=== PATIENT | male | born 1955 | race Caucasian/White ===

== ENCOUNTER 2020-03-04 09:45 | Inpatient (IN) ==
[2020-03-04] MEDS ORDERED: ACETAMINOPHEN 325 MG TABLET PO ONE (10:05)
--- NOTE | 2020-03-04 10:13 | Emergency Department Note ---
Abdominal Pain HPI - General Chief Complaint: Abdominal Pain Stated Complaint: Elevated wbc, abscess and diverticulitis Time Seen by Provider: 03/04/20 09:48 Source: patient Mode of arrival: ambulatory Limitations: no limitations - History of Present Illness HPI Narrative: 64-year-old male patient was referred back to the emergency department via his primary care provider with a diagnosis of worsening diverticulitis with intra- abdominal abscess development. Patient was evaluated by a colleague here in the emergency department on 02/21 and during that visit he was diagnosed with diverticulitis and a suspicious kidney mass. During that visit he underwent an abdominal/pelvic CT scan with contrast that did show acute diverticulitis of the mid distal sigmoid colon. There was also noted 2.3 x 2.4 cm mass anterior to the upper half of the right kidney. He was started on both oral ciprofloxacin 500 mg twice daily metronidazole 500 mg 3 times daily. He was set up to follow up with his primary care provider who saw him several times. Most recently he was evaluated on 03/02 and during that visit he was doing a bit better pain raygoza. They repeated some basic blood work and the CT with contrast. His WBC was elevated 19.8 which is unchanged from his visit in the emergency department on 02/21. Repeat CT scan results showed marked worsening of the mid and distal sigmoid diverticulitis. There was mention of an abscess distal right perisigmoid fat increased 2 cm to 5cm communicating with a new 3 cm air- containing abscess anteriorly/superiorly. This then communicates with a new 2.8 cm abscess superiorly and laterally in the cecal region. Patient was notified this morning to come be reevaluated. Upon arrival, patient does mention that he woke up feeling "pretty okay". He continues to have some mild lower abdominal pain. He denies feeling feverish and he is afebrile in the emergency department with a temperature 97.5. Patient mentions last meal was 0 800 today consisting of toast and cereal. ROS: Denies sinus sinus congestion, runny nose, or cough. Denies shortness of breath. Denies retrosternal chest pain or palpitations. Denies nausea, vomiting, or constipation. Denies past history of diverticulitis. Admits to ongoing diarrhea. Denies hematuria, hematemesis, or hematochezia. Denies dysuria or frequency. Denies focal weakness. - Related Data Home Medications Medication Instructions Recorded Confirmed aspirin 81 mg tablet 81 mg PO QDAY 05/16/17 03/02/20 omega-3 fatty acids 1,000 mg 2,000 mg PO QDAY 11/17/19 03/02/20 capsule Previous Rx's Medication Instructions Recorded allopurinol 300 mg tablet 300 mg PO QDAY #90 tab 11/17/19 lisinopril 10 mg tablet 10 mg PO QDAY #90 tab 11/17/19 rosuvastatin 20 mg tablet 20 mg PO QDAY #90 tab 11/17/19 Ciprofloxacin [Cipro] 500 mg PO BID #20 tab 02/22/20 HYDROcodone/APAP 5/325MG [[place] 1 tab PO Q4HP PRN #8 tab 02/22/20 5-325Mg] Ondansetron [Zofran ODT] 4 mg SL Q4-6HP PRN #10 tab 02/22/20 metroNIDAZOLE [Flagyl] 500 mg PO TID #30 tab 02/22/20 tamsulosin 0.4 mg capsule 0.4 mg PO QHS #30 cap 03/02/20 Allergies Allergy/AdvReac Type Severity Reaction Status Date / Time Penicillins Allergy Severe Nausea Verified 03/04/20 09:45 atorvastatin [From Lipitor] AdvReac Severe Muscle Pain Verified 03/04/20 09:45 bee stings Allergy Unknown Unknown Uncoded 03/02/20 07:20 Review of Systems All systems ED: reviewed and negative except as stated. Abdominal Pain PMH - Past Medical History [facility] Narrative: Medical History (Last Reviewed 03/02/20 @ 08:00 by Ronald Austin DO) Otitis externa (Chronic) Right ear pain (Chronic) History of tobacco abuse (Chronic) Arthritis (Chronic) Gout (Chronic ~1996) Hypertension, essential (Chronic ~2002) Hyperlipidemia (Chronic ~2002) Past Surgical History (Last Reviewed 03/02/20 @ 08:00 by Ronald Austin DO) H/O arthroscopy of left knee (Chronic ~1985) H/O colonoscopy (Chronic 02/2017) History of open reduction and internal fixation (ORIF) procedure (Chronic ~1983) Family History (Last Reviewed 03/02/20 @ 08:00 by Ronald Austin DO) Mother Arthritis Hypertension, essential Father Hypertension, essential Brother Hypertension, essential - Social History Smoking status: Former smoker Physical Exam Limitations: no limitations General appearance: alert, other (Well-developed, well-nourished, 64-year-old male patient laying semirecumbent on the emergency room gurney in no acute distress.) Head: atraumatic, normocephalic Eye: Present: normal appearance, PERRL, EOMI. Absent: scleral icterus, conjunctival injection ENT: Present: normal oropharynx, mucous membranes moist Neck: Present: trachea midline. Absent: lymphadenopathy Chest: Present: symmetric chest wall rise Respiratory: Present: normal lung sounds bilaterally. Absent: respiratory distress, rales/crackles, wheezes, stridor, accessory muscle use, prolonged expiratory phase Cardiovascular: Present: regular rate, normal rhythm. Absent: systolic murmur, diastolic murmur Abdominal: Present: soft, tenderness, normal bowel sounds. Absent: distention, guarding, rebound, rigidity, organomegaly, mass Abdominal tenderness: Present: LLQ, moderate Extremities: Present: normal inspection, full ROM, normal capillary refill. Absent: pedal edema Back: Present: normal inspection, full ROM Neurological: Present: alert, oriented X3 Psychiatric: Present: normal affect, normal mood Skin: Present: warm, dry, normal color Course Course Narrative: Patient has a known worsening diverticulitis with abscess development from repeat CT scan done yesterday (03/03). No additional imaging is warranted this time. However, we are going to repeat some laboratory studies looking for worse myla. Patient is currently afebrile and comfortable. He is not requiring any considerable intervention. A review of his laboratory studies show the following: CBC WBC 17.7 (slight decrease from 03/02 at 19.8), all others within normal limits. CMP sodium 132, glucose 159, all others within normal limits. C-reactive protein 6.7. Lactic acid 1.6. After reviewing all this data I discussed the case with my collaborating physician (Dr. Serna). At this time is recommended that we start the patient on Ancef to help cover both gram-positive and gram-negative organisms. Patient was given Ancef 1 g IVP. Afterwards, I reached out to on-call general surgeon (Dr. Foster) and discussed the case with him. At this time Dr. Foster is requested that the patient be admitted to the surgical service under his care. He is wanted me to place so holding orders and then he will assume care afterward. He recommended starting the patient on both cefepime 2 g IV and Flagyl 500 mg IV every 8 hours. Knowing this, I discussed the admission with the patient who verbalized understanding. At this time holding orders are can be placed as mentioned. Dr. Foster is going to assume care and all further treatment decisions, modalities, and ultimate patient disposition will be carried out by Dr. Fsoter and the surgical service. Vital Signs Temperature 97.5 F 03/04/20 09:45 Pulse Rate 100 H 03/04/20 09:45 Respiratory Rate 20 03/04/20 09:45 Blood Pressure 124/86 03/04/20 09:45 Pulse Oximetry (%) 100 03/04/20 09:45 Temperature 97.5 F 03/04/20 14:32 Pulse Rate 73 03/04/20 14:32 Respiratory Rate 20 03/04/20 14:32 Blood Pressure 113/79 03/04/20 14:32 Pulse Oximetry (%) 97 03/04/20 14:32 Abdominal Pain - Lab Data Lab results reviewed: Yes I reviewed the patient's lab results. Result diagrams: 03/04/20 10:05 03/04/20 10:05 Lab Results 03/04/20 03/04/20 03/04/20 Range/Units 10:05 10:05 10:08 WBC 17.7 H (4.50-11.00) K/mcL RBC 4.94 (4.63-6.08) M/mcL Hgb 14.5 (13.7-17.5) g/dL Hct 42.2 (40.1-51.0) % MCV 85.4 (80.0-100.0) fL MCH 29.4 (26.0-34.0) pg MCHC 34.4 (31.0-36.0) g/dL RDW 11.8 (11.5-14.5) % Plt Count 436 (140-440) K/mcL MPV 8.3 (7.4-10.4) fL Total Counted 100 Seg Neutrophils % 93 H (38-78) % Band Neutrophils % Not Reportable Lymphocytes % 4 L (15-49) % Monocytes % (Manual) 2 (1-12) % Eosinophils % (Manual) 1 (0-7) % Platelet Estimate Normal (NORMAL) RBC Morphology Normal (NORMAL) VBG Lactic Acid 1.6 (0.5-2.0) mmol/L Sodium 132 L (133-145) mmol/L Potassium 3.6 (3.3-5.1) mmol/L Chloride 97 (96-108) mmol/L Carbon Dioxide 23 (22-30) mmol/L Anion Gap 12.0 (8-16) BUN 14 (8-23) mg/dl Creatinine 0.8 (0.7-1.2) mg/dl GFR Calculation 94 Glucose 159 H (70-105) mg/dL Calcium 9.0 (8.6-10.4) mg/dl Total Bilirubin 0.5 (0.0-1.0) mg/dL AST 14 (0-37) U/l ALT 9 (0-40) U/l Alkaline Phosphatase 63 (39-117) U/L C-Reactive Protein (0.0-0.8) mg/dl Total Protein 7.2 (5.9-8.4) gm/dL Albumin 3.6 (3.2-5.2) gm/dL Globulin 3.6 (2.2-3.7) gm/dL Albumin/Globulin Ratio 1.0 (1.0-2.3) 03/04/20 Range/Units 10:08 WBC (4.50-11.00) K/mcL RBC (4.63-6.08) M/mcL Hgb (13.7-17.5) g/dL Hct (40.1-51.0) % MCV (80.0-100.0) fL MCH (26.0-34.0) pg MCHC (31.0-36.0) g/dL RDW (11.5-14.5) % Plt Count (140-440) K/mcL MPV (7.4-10.4) fL Total Counted Seg Neutrophils % (38-78) % Band Neutrophils % Lymphocytes % (15-49) % Monocytes % (Manual) (1-12) % Eosinophils % (Manual) (0-7) % Platelet Estimate (NORMAL) RBC Morphology (NORMAL) VBG Lactic Acid (0.5-2.0) mmol/L Sodium (133-145) mmol/L Potassium (3.3-5.1) mmol/L Chloride (96-108) mmol/L Carbon Dioxide (22-30) mmol/L Anion Gap (8-16) BUN (8-23) mg/dl Creatinine (0.7-1.2) mg/dl GFR Calculation Glucose (70-105) mg/dL Calcium (8.6-10.4) mg/dl Total Bilirubin (0.0-1.0) mg/dL AST (0-37) U/l ALT (0-40) U/l Alkaline Phosphatase (39-117) U/L C-Reactive Protein 6.7 H (0.0-0.8) mg/dl Total Protein (5.9-8.4) gm/dL Albumin (3.2-5.2) gm/dL Globulin (2.2-3.7) gm/dL Albumin/Globulin Ratio (1.0-2.3) - Radiology Data Radiology results reviewed: Yes I reviewed the patient's radiology results. Ordering Physician: Ronald Austin D.O. Date of Service: 03/03/20 Procedure(s): CT abdomen pelvis w con Accession Number(s): [id number] CLINICAL INFORMATION: Diverticulitis. Left lower quadrant pain COMPARISON: I 17/02/2020 TECHNIQUE: Following enteric contrast, 80 cc of Isovue-370 were injected intravenously, and 60 seconds later, 0.625 mm helical slices were obtained from the mid heart through the subtrochanteric regions. Following reconstruction, 2.5 mm sagittal, coronal and axial reformatted images were processed and reviewed at bone, lung and soft tissue windows. Five minutes later, 0.625 mm helical slices were obtained from the mid heart through the kidneys and viewed at soft tissue windows.The exam was performed using radiation dose optimization techniques including, but not limited to, automated exposure control, adjustment of the mA and/or kV according to patient size and use of iterative reconstruction technique. FINDINGS: Lung bases show scattered scarring and/or atelectasis. No effusions. The visualized heart is normal in size scattered calcific plaque in the visualized coronary arteries. Abdominal images show multiple small stones layering dependently in the gallbladder. Gallbladder demonstrates normal wall thickness. The intrahepatic and common bile ducts are normal caliber and CBD 6 mm. The liver, both adrenal glands, spleen, pancreas and aorta, including aortic branches, are normal in size, configuration and attenuation without focal lesion. A 2.4 cm homogeneously enhancing mass arising from the anterior cortex mid right kidney is again seen. It is likely stage I renal cell carcinoma Pelvic images show moderate diverticulitis involving the mid and distal sigmoid colon as progressed with increasing wall thickening and inflammation in the perisigmoid fat. In addition, a collection of abscesses has increased considerably since the exam over one week prior. The largest is 5 cm in the distal right perisigmoid fat near the rectal junction. Previously, this was only 2 cm. It is communicates superiorly with a new 3 cm air-containing abscess which then communicates with a 2.8 cm abscess more superiorly and laterally in the pericecal region. Small amount of free fluid is appreciated.. Mild wall thickening of the adjacent posterior wall the urinary bladder is sympathetic. Bone windows show no osseous abnormality. IMPRESSION: 1. Marked worsening of mid and distal sigmoid diverticulitis. An abscess in the distal right perisigmoid fat has increased 2 cm to 5 cm. This abscess communicates with a new 3 cm air-containing abscess anteriorly superiorly which then communicates with a new 2.8 cm abscess superiorly and laterally in the pericecal region. Consider CT-guided percutaneous drainage of a large abscess component. 2. Cholelithiasis 3. 2.4 cm inhomogeneous enhancing solid mass anterior cortex mid right kidney suspicious for stage I renal cell carcinoma. Suggest CT-guided biopsy Interpreted and Authenticated by: Ronald Elise 03/03/20 Disposition Pt seen by [employer]/PA only: Yes Clinical Impression: Kidney mass Diverticulitis of intestine with abscess Qualifiers: Diverticulitis site: large intestine Diverticulitis bleeding: unspecified bleeding status Qualified Code(s): K57.20 - Diverticulitis of large intestine with perforation and abscess without bleeding Disposition: Xfer As Inpt ([facility]) Condition: Good Referrals: Ronald Austin DO [Primary Care Provider] -
[2020-03-04 10:39] LABS: Hematocrit 42.2 % (40.1-51.0); Hemoglobin 14.5 g/dL (13.7-17.5); Mean Cell Volume 85.4 fL (80.0-100.0); Mean Corpuscular HGB Conc 34.4 g/dL (31.0-36.0); Mean Platelet Volume 8.3 fL (7.4-10.4); Platelet Count 436 K/mcL (140-440); RBC 4.94 M/mcL (4.63-6.08); Red Cell Distribution Width 11.8 % (11.5-14.5); WBC 17.7 K/mcL (4.50-11.00)
[2020-03-04 10:58] LABS: ALT/SGPT 9 U/l (0-40); AST/SGOT 14 U/l (0-37); Albumin 3.6 gm/dL (3.2-5.2); Alkaline Phosphatase 63 U/L (39-117); Bilirubin,Total 0.5 mg/dL (0.0-1.0); Blood Urea Nitrogen 14 mg/dl (8-23); Carbon Dioxide 23 mmol/L (22-30); Chloride 97 mmol/L (96-108); Globulin 3.6 gm/dL (2.2-3.7); Glomerular Filtration Rate 94; Glucose 159 mg/dL (70-105)
[2020-03-04 10:59] LABS: Eosinophils % (Manual) 1 % (0-7); Lymphocytes % 4 % (15-49); Monocytes % (Manual) 2 % (1-12); Platelet Estimate NORMAL (NORMAL); RBC Morphology NORMAL (NORMAL); Segmented Neutrophils % 93 % (38-78)
[2020-03-04] MEDS ORDERED: ceFAZolin 1 GM VIAL IV ONE (11:10)
[2020-03-04] MEDS ORDERED: ACETAMINOPHEN 325 MG TABLET PO PRN (11:58)
[2020-03-04] MEDS ORDERED: HYDROmorphone 0.5 MG/0.5 ML SYRINGE IV PRN (11:58)
[2020-03-04] MEDS ORDERED: ONDANSETRON 4 MG/2 ML VIAL IV PRN (11:58)
--- NOTE | 2020-03-04 12:03 | Emergency Department Note ---
ED Note Addendum Note Addendum: I reviewed this case of Kerwin Mcginnis PA-C. I had previously saw this patient in the ER. Anyways Kerwin and I discussed the patient's management and work-up. I agree with his evaluation management and documentation. Patient will be admitted for diverticulitis with abscess. Incidentally noted renal mass will also require work-up
[2020-03-04] MEDS: metroNIDAZOLE 500 MG/100 ML BAG IV SCH ×2 (12:32→20:23)
--- NOTE | 2020-03-04 15:51 | General Surg History&Physical ---
History of Present Illness Patient information: Note initiated : 03/04/20 at 3:48 pm Service Date, if different from initiated Date: [] Patient: Derrick Summers a 64 y/o M admitted on 03/04/20 for Elevated wbc, abscess and diverticulitis. Chief Complaint: [] HPI: Mr. Summers is a 64 year old M history of acute diverticulitis since 21 February. He has been treated with 10 days of antibiotics which ended yesterday. He has had diarrhea and some urgency. He denies fever or chills. He has poor appetite with a 10 pound weight loss. He has not had similar difficulty. Follow-up CT performed on yesterday shows progression of the inflammation of the colon with 3 separate abscess pockets of air contained the abscess pockets. Patient is admitted and will have sigmoid colectomy tomorrow. He is counseled for the colectomy and is advised that he will have colostomy for 8-10 weeks before re- anastomosis. Review of Systems All systems PM: reviewed and no additional remarkable complaints except as stated (negative except as noted in HPI) Past History Past medical history: Hypertension right kidney mass suspicious for renal cell carcinoma Cholelithiasis Past surgical history: Arthroscopy left knee Open treatment and fixation left hand fracture Past family history: Multiple family members have hypertension Past social history: Retired Former smoker Daily alcohol drinker Denies drug use Medications and Allergies Home Medications Medication Instructions Recorded Confirmed Type aspirin 81 mg tablet 81 mg PO QDAY 05/16/17 03/02/20 History allopurinol 300 mg tablet 300 mg PO QDAY #90 tab 11/17/19 03/02/20 Rx lisinopril 10 mg tablet 10 mg PO QDAY #90 tab 11/17/19 03/02/20 Rx omega-3 fatty acids 1,000 mg 2,000 mg PO QDAY 11/17/19 03/04/20 History capsule rosuvastatin 20 mg tablet 20 mg PO QDAY #90 tab 11/17/19 03/04/20 Rx Ondansetron [Zofran ODT] 4 mg SL Q4-6HP PRN #10 tab 02/22/20 03/02/20 Rx tamsulosin 0.4 mg capsule 0.4 mg PO QHS #30 cap 03/02/20 03/04/20 Rx Allergies Allergy/AdvReac Type Severity Reaction Status Date / Time Penicillins Allergy Severe Nausea Verified 03/04/20 09:45 atorvastatin [From Lipitor] AdvReac Severe Muscle Pain Verified 03/04/20 09:45 bee stings Allergy Unknown Unknown Uncoded 03/02/20 07:20 Exam Temp Pulse Resp BP Pulse Ox 98.6 F 68 16 112/69 96 03/04/20 14:34 03/04/20 14:34 03/04/20 14:34 03/04/20 14:34 03/04/20 14:34 - General physical appearance well developed, well nourished, no distress - Eyes PERRL, normal ocular movement - ENT normal pinna, normal nares, normal mucosa, no hearing loss, no congestion, poor snf (multiple missing teeth and cavitations) - Head Head exam IM: Present: atraumatic, normocephalic - Neck no masses, no bruits, trachea midline, no lymphadenopathy, no venous distension - Cardiovascular Cardiovascular exam IM: Present: normal rate and rhythm - Respiratory normal expansion, normal respiratory effort, clear to percussion, clear to auscultation - Abdomen Abdomen: Present: soft, tender ( tenderness left lower quadrant suprapubic and right lower quadrant with guarding), bowel sounds, masses ( mass effect suprapubic area), guarding Hernia: Present: none - Genitourinary Present: normal penis with no external lesions - Integumentary Present: no rash, no growths, no abnormal pigmentation - Neurologic Present: normal coordination, normal sensation - Musculoskeletal Present: normal gait, normal posture - Psychiatric Present: oriented to time, oriented to person, oriented to place, speech is normal, memory intact Assessment and Plan (1) Diverticulitis of intestine with abscess Liquids until midnight Sigmoid resection with colostomy in a.m. Cefepime 2 g every 8 hours Metronidazole 500 mg IV every 6 hours Status: Acute Qualifiers: Diverticulitis site: large intestine Diverticulitis bleeding: unspecified bleeding status Qualified Code(s): K57.20 - Diverticulitis of large intestine with perforation and abscess without bleeding (2) Umbilical hernia Will repair at the time of the laparotomy Status: Acute Qualifiers: Obstruction and gangrene presence: without obstruction or gangrene Qualified Code(s): K42.9 - Umbilical hernia without obstruction or gangrene (3) Hypertension, essential Will supplement with IV antihypertensives as needed Status: Chronic (4) Kidney mass Delay renal biopsy scheduled for 08 March 2020 until patient recovers from this operative procedure Status: Acute
[2020-03-04] MEDS: CEFEPIME 2 GM VIAL IV SCH ×2 (16:10→20:23)
[2020-03-04] MEDS: 0.9 % SODIUM CHLORIDE 10 ML SYRINGE IV SCH ×2 (16:11→20:23)
[2020-03-04] MEDS: 0.9 % SODIUM CHLORIDE 1,000 ML IV SCH ×2 (16:11→20:22)
--- NOTE | 2020-03-04 17:42 | XRay Report ---
CLINICAL INFORMATION: Preop COMPARISON: None. TECHNIQUE: PA and Lateral views FINDINGS: The heart size, mediastinum and pulmonary vessels are unremarkable. The lungs are clear. There are no effusions. The bones and soft tissues are within normal limits. IMPRESSION: Normal chest. Interpreted and Authenticated by: Ronald Elise 03/04/20
[2020-03-04 18:17] LABS: INR 1.2 (0.9-1.1); Prothrombin Time 15.8 sec (11.9-14.5)
[2020-03-05] MEDS: 0.9 % SODIUM CHLORIDE 1,000 ML IV SCH ×5 (00:52→19:37)
[2020-03-05] MEDS: metroNIDAZOLE 500 MG/100 ML BAG IV SCH ×3 (04:28→22:18)
[2020-03-05] MEDS: CEFEPIME 2 GM VIAL IV SCH ×3 (04:28→22:17)
[2020-03-05] MEDS: 0.9 % SODIUM CHLORIDE 10 ML SYRINGE IV SCH ×3 (04:29→22:18)
[2020-03-05 04:39] LABS: Appearance,Urine CLEAR; Bilirubin,Urine NEG (NEG); Color,Urine YELLOW; Culture Indicated,Urine NO; Glucose,Urine (UA) NEGATIVE (NEG); Ketones,Urine 5/TR mg/dL (NEG); Leukocyte Esterase,Urine NEG /uL (NEG); Nitrate,Urine NEG (NEG); Protein,Urine NEG (NEG); Specific Gravity,Urine 1.018 (1.000-1.035); Urine Blood NEG mg/dL (<0.03); Urobilinogen,Urine NEG (NEG)
[2020-03-05] MEDS ORDERED: SCOPOLAMINE 1 PATCH PATCH TOPICAL PRN (07:00)
[2020-03-05] MEDS ORDERED: IPRATROPIUM/ALBUTEROL 3 ML AMPUL.NEB NEB PRN ×2 (07:00→09:47)
[2020-03-05] MEDS ORDERED: DEXAMETHASONE 10 MG/ML VIAL IV ONE (08:09)
[2020-03-05] MEDS ORDERED: SUCCINYLCHOLINE 20 MG/ML ML IV ONE (08:09)
[2020-03-05] MEDS ORDERED: PHENYLEPHRINE 10 MG/ML VIAL IV ONE (08:09)
[2020-03-05] MEDS ORDERED: SUGAMMADEX SODIUM 200 MG/2 ML VIAL IV ONE (08:09)
[2020-03-05] MEDS ORDERED: fentaNYL 250 MCG/5 ML VIAL IV ONE (08:09)
[2020-03-05] MEDS ORDERED: ROCURONIUM 10 MG/ML ML IV ONE (08:09)
[2020-03-05] MEDS ORDERED: LIDOCAINE HCL/PF 100 MG/5 ML SYRINGE IV ONE (08:09)
[2020-03-05] MEDS ORDERED: ePHEDrine 50 MG/ML AMPUL IV ONE (08:09)
[2020-03-05] MEDS ORDERED: PROPOFOL 200 MG/20 ML VIAL IV ONE (08:09)
[2020-03-05] MEDS ORDERED: KETAMINE 100 MG/ML ML IV ONE (08:09)
[2020-03-05] MEDS ORDERED: ROPIVACAINE HCL/PF 20 ML VIAL IJ ONE (08:09)
[2020-03-05] MEDS ORDERED: KETOROLAC 30 MG/ML VIAL IV ONE (08:09)
[2020-03-05] MEDS ORDERED: ONDANSETRON 4 MG/2 ML VIAL IV ONE (08:09)
[2020-03-05] MEDS ORDERED: MEPERIDINE 25 MG/ML SYRINGE IV PRN (09:47)
[2020-03-05] MEDS ORDERED: ONDANSETRON 4 MG/2 ML VIAL IV PRN (09:47)
[2020-03-05] MEDS ORDERED: HYDROmorphone 0.5 MG/0.5 ML SYRINGE IV PRN (09:47)
[2020-03-05] MEDS ORDERED: ACETAMINOPHEN 1,000 MG/100 ML BOTTLE IV ONE (09:47)
[2020-03-05] MEDS ORDERED: ATROPINE SULFATE 0.4 MG/ML VIAL IV PRN (09:47)
[2020-03-05] MEDS ORDERED: METHOCARBAMOL 1,000 MG/10 ML VIAL IV PRN (09:47)
[2020-03-05] MEDS ORDERED: diphenhydrAMINE 50 MG/ML VIAL IV PRN (09:47)
[2020-03-05] MEDS ORDERED: ePHEDrine 50 MG/ML AMPUL IV PRN (09:47)
[2020-03-05] MEDS ORDERED: NALOXONE HCL 0.4 MG/ML VIAL IV PRN (09:47)
[2020-03-05] MEDS ORDERED: METOPROLOL TARTRATE 5 MG/5 ML VIAL IV PRN (09:47)
[2020-03-05] MEDS ORDERED: PROMETHAZINE 25 MG/ML VIAL IV PRN (09:47)
[2020-03-05] MEDS ORDERED: LACTATED RINGERS 1,000 ML IV SCH (10:00)
--- NOTE | 2020-03-05 10:40 | Brief Operative Note ---
Date of procedure: 03/05/20 Pre-op diagnosis: ACUTE DIVERTICULITIS WITH PELVIC ABSCESS Post-op diagnosis: other (ACUTE DIVERTICULITIS WITH MULTIPLE PELVIC ABSCESSES) Procedure: SIGMOID COLECTOMY WITH COLOSTOMY AND DRAINAGE OF PELVIC ABSCESSES Grafts/Implants: No (AALIYAH DRAIN X2) Findings: MAJOR INFLAMMATION OF SIGMOID COLON WITH LARGE PHLEGMON OF COLON ,SMALL BOWEL ,AND BLADDER ABSCESS EXTENDED INTO DEEP PELVIS AND RLQ Complications: none Surgeon: Lashae Foster Estimated blood loss (cc): 100 Specimens Removed/Pathology: none sent (SIGMOID COLON AND CULTURE OF ABSCESS FLUID) Condition: stable Disposition: PACU
[2020-03-05] MEDS: fentaNYL 100 MCG/2 ML VIAL IV PRN ×3 (10:55→11:25)
[2020-03-05] MEDS ORDERED: ACETAMINOPHEN 325 MG TABLET PO PRN (12:37)
[2020-03-05] MEDS ORDERED: metroNIDAZOLE 500 MG/100 ML BAG IV SCH (14:00)
[2020-03-05] MEDS ORDERED: CEFEPIME 2 GM VIAL IV SCH (14:00)
[2020-03-05] MEDS: ONDANSETRON 4 MG/2 ML VIAL IV PRN (15:00)
[2020-03-05] MEDS: ACETAMINOPHEN 1,000 MG/100 ML BOTTLE IV SCH ×2 (18:46→23:34)
[2020-03-06] MEDS: HYDROmorphone 0.5 MG/0.5 ML SYRINGE IV PRN ×2 (03:23→07:23)
[2020-03-06] MEDS: 0.9 % SODIUM CHLORIDE 1,000 ML IV SCH ×5 (05:02→22:55)
[2020-03-06] MEDS: ACETAMINOPHEN 1,000 MG/100 ML BOTTLE IV SCH ×4 (05:03→23:56)
[2020-03-06] MEDS: 0.9 % SODIUM CHLORIDE 10 ML SYRINGE IV SCH ×3 (05:03→21:58)
[2020-03-06] MEDS: CEFEPIME 2 GM VIAL IV SCH ×3 (05:17→21:58)
[2020-03-06] MEDS: metroNIDAZOLE 500 MG/100 ML BAG IV SCH ×3 (06:01→21:58)
[2020-03-06 07:18] LABS: Basophils # (Auto) 0.04 K/mcL (0.00-0.30); Basophils % (Auto) 0.3 % (0.0-2.0); Eosinophils # (Auto) 0.01 K/mcL (0.00-0.70); Eosinophils % (Auto) 0.1 % (0.0-7.0); Granulocytes % (Auto) 81.7 % (38.0-78.0); Hematocrit 39.6 % (40.1-51.0); Lymphocytes # (Auto) 1.54 K/mcL (1.50-4.80); Lymphocytes % (Auto) 10.2 % (15.5-49.0); Mean Cell Volume 89.6 fL (80.0-100.0); Mean Corpuscular HGB Conc 32.8 g/dL (31.0-36.0); Mean Platelet Volume 8.1 fL (7.4-10.4); Monocytes # (Auto) 1.17 K/mcL (0.10-0.90); Monocytes % (Auto) 7.7 % (1.0-12.0); Platelet Count 466 K/mcL (140-440); RBC 4.42 M/mcL (4.63-6.08); Red Cell Distribution Width 11.7 % (11.5-14.5); WBC 15.1 K/mcL (4.50-11.00)
[2020-03-06 07:41] LABS: ALT/SGPT 9 U/l (0-40); AST/SGOT 11 U/l (0-37); Albumin 2.7 gm/dL (3.2-5.2); Albumin/Globulin Ratio 0.8 (1.0-2.3); Alkaline Phosphatase 46 U/L (39-117); Bilirubin,Direct < 0.2 mg/dL (0.0-0.3); Bilirubin,Total 0.3 mg/dL (0.0-1.0); Blood Urea Nitrogen 15 mg/dl (8-23); Calcium 8.4 mg/dl (8.6-10.4); Carbon Dioxide 25 mmol/L (22-30); Chloride 104 mmol/L (96-108); Globulin 3.3 gm/dL (2.2-3.7); Glomerular Filtration Rate 90; Glucose 116 mg/dL (70-105); Lactate Dehydrogenase 209 U/L (94-250); Phosphorous 3.2 mg/dL (2.7-4.5); Triglycerides 80 mg/dl (<150); Uric Acid 5.4 mg/dL (2.5-8.0)
--- NOTE | 2020-03-06 14:00 | General Surgery Progress Note ---
Subjective Patient reports: feels better, still having pain, pain is less, no flatus, no bowel movement, afebrile Narrative: Note initiated : 03/06/20 at 1:58 pm Service Date, if different from initiated Date: [] Patient: Derrick Summers 64 y/o M admitted on 03/04/20 for Elevated wbc, abscess and diverticulitis. Chief Complaint: [patient is clinically improved. The severe pain that he had prior to surgery has resolved though he does have incisional discomfort. He denies nausea. White blood count 15.1, hemoglobin 13, hematocrit 39.6. Stoma appears to be healthy] Objective Temp Pulse Resp BP Pulse Ox 98.5 F 82 18 150/85 95 03/06/20 11:26 03/06/20 11:26 03/06/20 11:26 03/06/20 11:26 03/06/20 11:26 - Additional Data Intake & Output - Last 24 hours: Intake & Output 03/04/20 03/05/20 03/06/20 03/07/20 05:59 05:59 05:59 05:59 Intake Total 1740 5575 200 Output Total 350 2815 Balance 1390 2760 200 Weight 222 lb 222 lb - General physical appearance well developed, well nourished, no distress - Eyes PERRL, normal ocular movement - ENT normal pinna, normal nares, normal mucosa, no hearing loss, no congestion - Neck no masses, no bruits, trachea midline, no lymphadenopathy, no venous distension - Respiratory normal expansion, normal respiratory effort, clear to auscultation - Cardiovascular Cardiovascular exam: Present: normal rate and rhythm, RRR, +S1, +S2. Absent: JVD, tachycardia - Abdomen tender, bowel sounds (present), surgical scars (none), masses (none) - Integumentary no rash, no growths, no abnormal pigmentation - Neurologic normal coordination, normal sensation - Musculoskeletal normal gait, normal posture - Psychiatric oriented to time, oriented to person, oriented to place, speech is normal, memory intact - Labs 03/06/20 05:53 03/06/20 05:53 Diabetes panel 03/06/20 Range/Units 05:53 Sodium 138 (133-145) mmol/L Potassium 3.7 (3.3-5.1) mmol/L Chloride 104 (96-108) mmol/L Carbon Dioxide 25 (22-30) mmol/L BUN 15 (8-23) mg/dl Creatinine 0.9 (0.7-1.2) mg/dl Glucose 116 H (70-105) mg/dL Calcium 8.4 L (8.6-10.4) mg/dl AST 11 (0-37) U/l ALT 9 (0-40) U/l Alkaline Phosphatase 46 (39-117) U/L Total Protein 6.0 (5.9-8.4) gm/dL Albumin 2.7 L (3.2-5.2) gm/dL Triglycerides 80 (<150) mg/dl Calcium panel 03/06/20 Range/Units 05:53 Calcium 8.4 L (8.6-10.4) mg/dl Phosphorus 3.2 (2.7-4.5) mg/dL Albumin 2.7 L (3.2-5.2) gm/dL Pituitary panel 03/06/20 Range/Units 05:53 Sodium 138 (133-145) mmol/L Potassium 3.7 (3.3-5.1) mmol/L Chloride 104 (96-108) mmol/L Carbon Dioxide 25 (22-30) mmol/L BUN 15 (8-23) mg/dl Creatinine 0.9 (0.7-1.2) mg/dl Glucose 116 H (70-105) mg/dL Calcium 8.4 L (8.6-10.4) mg/dl Adrenal panel 03/06/20 Range/Units 05:53 Sodium 138 (133-145) mmol/L Potassium 3.7 (3.3-5.1) mmol/L Chloride 104 (96-108) mmol/L Carbon Dioxide 25 (22-30) mmol/L BUN 15 (8-23) mg/dl Creatinine 0.9 (0.7-1.2) mg/dl Glucose 116 H (70-105) mg/dL Calcium 8.4 L (8.6-10.4) mg/dl Total Bilirubin 0.3 (0.0-1.0) mg/dL AST 11 (0-37) U/l ALT 9 (0-40) U/l Alkaline Phosphatase 46 (39-117) U/L Total Protein 6.0 (5.9-8.4) gm/dL Albumin 2.7 L (3.2-5.2) gm/dL Assessment and Plan (1) Diverticulitis of intestine with abscess Status: Acute Assessment and plan: Patient is clinically improved status post sigmoid colectomy with colostomy Current Visit: Yes (2) Umbilical hernia Status: Acute Current Visit: No (3) Hypertension, essential Status: Chronic Current Visit: No (4) Kidney mass Status: Acute Current Visit: Yes - Time Spent With Patient Total time spent is greater than 50% in coordination of care (as documented) at patient's floor/unit and/or counseling patient:
[2020-03-06] MEDS: ONDANSETRON 4 MG/2 ML VIAL IV PRN (17:20)
[2020-03-06] MEDS: METOCLOPRAMIDE 10 MG/2 ML VIAL IV SCH ×2 (17:20→23:55)
[2020-03-07] MEDS: 0.9 % SODIUM CHLORIDE 1,000 ML IV SCH ×2 (03:11→12:26)
[2020-03-07] MEDS: metroNIDAZOLE 500 MG/100 ML BAG IV SCH ×3 (04:51→22:39)
[2020-03-07] MEDS: HYDROmorphone 0.5 MG/0.5 ML SYRINGE IV PRN ×2 (05:58→20:11)
[2020-03-07] MEDS: ACETAMINOPHEN 1,000 MG/100 ML BOTTLE IV SCH ×4 (05:58→23:58)
[2020-03-07] MEDS: METOCLOPRAMIDE 10 MG/2 ML VIAL IV SCH ×4 (05:59→23:58)
[2020-03-07] MEDS: CEFEPIME 2 GM VIAL IV SCH ×3 (05:59→22:39)
[2020-03-07 06:31] LABS: Basophils # (Auto) 0.04 K/mcL (0.00-0.30); Basophils % (Auto) 0.3 % (0.0-2.0); Eosinophils # (Auto) 0.04 K/mcL (0.00-0.70); Eosinophils % (Auto) 0.3 % (0.0-7.0); Granulocytes % (Auto) 79.7 % (38.0-78.0); Hematocrit 36.2 % (40.1-51.0); Lymphocytes # (Auto) 1.56 K/mcL (1.50-4.80); Lymphocytes % (Auto) 11.9 % (15.5-49.0); Mean Cell Volume 89.2 fL (80.0-100.0); Mean Corpuscular HGB Conc 33.1 g/dL (31.0-36.0); Mean Platelet Volume 8.1 fL (7.4-10.4); Monocytes # (Auto) 1.02 K/mcL (0.10-0.90); Monocytes % (Auto) 7.8 % (1.0-12.0); Platelet Count 478 K/mcL (140-440); RBC 4.06 M/mcL (4.63-6.08); Red Cell Distribution Width 11.9 % (11.5-14.5); WBC 13.1 K/mcL (4.50-11.00)
[2020-03-07] MEDS: 0.9 % SODIUM CHLORIDE 10 ML SYRINGE IV SCH ×3 (06:34→22:39)
[2020-03-07 06:48] LABS: ALT/SGPT 7 U/l (0-40); AST/SGOT 11 U/l (0-37); Albumin 2.9 gm/dL (3.2-5.2); Alkaline Phosphatase 42 U/L (39-117); Bilirubin,Direct < 0.2 mg/dL (0.0-0.3); Bilirubin,Total 0.3 mg/dL (0.0-1.0); Blood Urea Nitrogen 16 mg/dl (8-23); Calcium 8.3 mg/dl (8.6-10.4); Carbon Dioxide 27 mmol/L (22-30); Chloride 103 mmol/L (96-108); Globulin 2.9 gm/dL (2.2-3.7); Glomerular Filtration Rate 100; Glucose 103 mg/dL (70-105); Lactate Dehydrogenase 194 U/L (94-250); Phosphorous 2.2 mg/dL (2.7-4.5); Triglycerides 94 mg/dl (<150); Uric Acid 5.2 mg/dL (2.5-8.0)
--- NOTE | 2020-03-07 12:48 | Surgical Pathology Report ---
HISTOLOGY SPECIMEN MICROSCOPIC DIAGNOSIS COLON, SIGMOID, SEGMENTAL RESECTION: -- ACUTE DIVERTICULITIS WITH MARKED ACUTE SEROSITIS AND SEROSAL ADHESIONS. -- MARGINS VIABLE. -- NINE MESENTERIC LYMPH NODES WITH REACTIVE LYMPHOID HYPERPLASIA. (DMT:sln) PROCEDURAL IMPRESSION Diverticulitis. GROSS DESCRIPTION The specimen is received in formalin as sigmoid colon and consists of a 24.5 cm long, up to 3.2 cn diameter C-shaped portion of colon with attached hyperemic adipose tissue, hemorrhage and serosal adhesions. Six additional lobular portions of adipose tissue are present within the container that also have patchy hyperemia and an aggregate measurement of 8.0 x 6.5 x 2.5 cm. Each end of the colon is stapled, staple lines measure up to 4.0 and 4.5 cm. The most prominent area of hemorrhage spans up to 9.0 x 8.5 cm. The central region of the attached adipose tissue is tightly adhesed. Opening of the colon reveals unprepped bowel with abundant brown fecal material. Numerous diverticula are identified. The specimen is fixed overnight prior to additional sectioning. After overnight fixation, the specimen is re-examined. No mucosal mass lesions or polyps are seen. Sectioning confirms numerous diverticula. A few soft pink-barrett lymph nodes measuring up to 0.5 cm are present within the attached fat. The surgical margins are submitted in A1; account development representative cross sections of colon submitted in [id number]; account development representative lymph nodes submitted in A4 (nine candidate lymph nodes). (ACP:[email or web address]) Electronically Signed by: John Boyd M.D.
--- NOTE | 2020-03-07 14:43 | General Surgery Progress Note ---
Subjective Patient reports: feels better, pain is less, no flatus, no bowel movement, afebrile Narrative: Note initiated : 03/07/20 at 2:41 pm Service Date, if different from initiated Date: [] Patient: Derrick Summers 64 y/o M admitted on 03/04/20 for Elevated wbc, abscess and diverticulitis. Chief Complaint: [patient is stable. He has not had any flatus so far. His stoma still looks good. Pain is adequately controlled. White blood count 13.1, hemoglobin 12, hematocrit 36.2, potassium 3.2, phosphorus 2.2] Objective Temp Pulse Resp BP Pulse Ox 98.1 F 92 H 18 148/84 93 03/07/20 12:00 03/07/20 12:00 03/07/20 12:00 03/07/20 12:00 03/07/20 12:00 - Additional Data Intake & Output - Last 24 hours: Intake & Output 03/05/20 03/06/20 03/07/20 03/08/20 05:59 05:59 05:59 05:59 Intake Total 1740 5575 2800 1200 Output Total 350 2815 2895 Balance 1390 2760 -95 1200 Weight 222 lb 222 lb 225 lb 9.6 oz 225 lb 9.6 oz - General physical appearance well developed, well nourished, no distress - Eyes PERRL, normal ocular movement - ENT normal pinna, normal nares, normal mucosa, no hearing loss, no congestion - Neck no masses, no bruits, trachea midline, no lymphadenopathy, no venous distension - Respiratory normal expansion, normal respiratory effort, clear to auscultation - Cardiovascular Cardiovascular exam: Present: normal rate and rhythm, RRR, +S1, +S2. Absent: JVD, tachycardia - Abdomen tender (mild incisional tenderness), bowel sounds ( good active bowel sounds), surgical scars (none), wound ( stoma in left lower quadrant looks good), masses (none), distended ( mild distention) - Integumentary no rash, no growths, no abnormal pigmentation - Neurologic normal coordination, normal sensation - Musculoskeletal normal gait, normal posture - Psychiatric oriented to time, oriented to person, oriented to place, speech is normal, memory intact - Labs 03/07/20 05:25 03/07/20 05:25 Diabetes panel 03/07/20 Range/Units 05:25 Sodium 141 (133-145) mmol/L Potassium 3.3 (3.3-5.1) mmol/L Chloride 103 (96-108) mmol/L Carbon Dioxide 27 (22-30) mmol/L BUN 16 (8-23) mg/dl Creatinine 0.7 (0.7-1.2) mg/dl Glucose 103 (70-105) mg/dL Calcium 8.3 L (8.6-10.4) mg/dl AST 11 (0-37) U/l ALT 7 (0-40) U/l Alkaline Phosphatase 42 (39-117) U/L Total Protein 5.8 L (5.9-8.4) gm/dL Albumin 2.9 L (3.2-5.2) gm/dL Triglycerides 94 (<150) mg/dl Calcium panel 03/07/20 Range/Units 05:25 Calcium 8.3 L (8.6-10.4) mg/dl Phosphorus 2.2 L (2.7-4.5) mg/dL Albumin 2.9 L (3.2-5.2) gm/dL Pituitary panel 03/07/20 Range/Units 05:25 Sodium 141 (133-145) mmol/L Potassium 3.3 (3.3-5.1) mmol/L Chloride 103 (96-108) mmol/L Carbon Dioxide 27 (22-30) mmol/L BUN 16 (8-23) mg/dl Creatinine 0.7 (0.7-1.2) mg/dl Glucose 103 (70-105) mg/dL Calcium 8.3 L (8.6-10.4) mg/dl Adrenal panel 03/07/20 Range/Units 05:25 Sodium 141 (133-145) mmol/L Potassium 3.3 (3.3-5.1) mmol/L Chloride 103 (96-108) mmol/L Carbon Dioxide 27 (22-30) mmol/L BUN 16 (8-23) mg/dl Creatinine 0.7 (0.7-1.2) mg/dl Glucose 103 (70-105) mg/dL Calcium 8.3 L (8.6-10.4) mg/dl Total Bilirubin 0.3 (0.0-1.0) mg/dL AST 11 (0-37) U/l ALT 7 (0-40) U/l Alkaline Phosphatase 42 (39-117) U/L Total Protein 5.8 L (5.9-8.4) gm/dL Albumin 2.9 L (3.2-5.2) gm/dL Assessment and Plan (1) Diverticulitis of intestine with abscess Status: Acute Assessment and plan: Patient is clinically improved status post sigmoid colectomy with colostomy Current Visit: Yes (2) Umbilical hernia Status: Acute Current Visit: No (3) Hypertension, essential Status: Chronic Current Visit: No (4) Kidney mass Status: Acute Current Visit: Yes - Time Spent With Patient Total time spent is greater than 50% in coordination of care (as documented) at patient's floor/unit and/or counseling patient:
[2020-03-07] MEDS: hydrALAZINE 20 MG/ML VIAL IV PRN (18:11)
[2020-03-07] MEDS: PANTOPRAZOLE 40 MG VIAL IV SCH (18:11)
[2020-03-07] MEDS: TAMSULOSIN 0.4 MG CAPSULE PO SCH (20:11)
[2020-03-08] MEDS: 0.9 % SODIUM CHLORIDE 1,000 ML IV SCH ×4 (00:55→23:38)
[2020-03-08] MEDS: hydrALAZINE 20 MG/ML VIAL IV PRN ×2 (03:36→16:00)
[2020-03-08] MEDS: ACETAMINOPHEN 1,000 MG/100 ML BOTTLE IV SCH ×5 (05:45→23:29)
[2020-03-08] MEDS: 0.9 % SODIUM CHLORIDE 10 ML SYRINGE IV SCH ×3 (05:46→21:29)
[2020-03-08] MEDS: metroNIDAZOLE 500 MG/100 ML BAG IV SCH ×3 (05:46→21:35)
[2020-03-08] MEDS: METOCLOPRAMIDE 10 MG/2 ML VIAL IV SCH ×4 (06:02→23:29)
[2020-03-08] MEDS: CEFEPIME 2 GM VIAL IV SCH ×3 (06:03→21:28)
[2020-03-08 06:54] LABS: Bilirubin,Direct < 0.2 mg/dL (0.0-0.3); Chloride 100 mmol/L (96-108)
[2020-03-08 06:56] LABS: ALT/SGPT 8 U/l (0-40); AST/SGOT 13 U/l (0-37); Albumin 2.8 gm/dL (3.2-5.2); Albumin/Globulin Ratio 0.9 (1.0-2.3); Alkaline Phosphatase 41 U/L (39-117); Bilirubin,Total 0.4 mg/dL (0.0-1.0); Blood Urea Nitrogen 14 mg/dl (8-23); Calcium 8.4 mg/dl (8.6-10.4); Carbon Dioxide 24 mmol/L (22-30); Glomerular Filtration Rate 106; Glucose 95 mg/dL (70-105); Lactate Dehydrogenase 202 U/L (94-250); Phosphorous 2.1 mg/dL (2.7-4.5); Triglycerides 106 mg/dl (<150); Uric Acid 5.3 mg/dL (2.5-8.0)
[2020-03-08] MEDS: HYDROmorphone 0.5 MG/0.5 ML SYRINGE IV PRN ×2 (08:10→17:01)
[2020-03-08] MEDS: PANTOPRAZOLE 40 MG VIAL IV SCH ×2 (08:10→17:03)
[2020-03-08 09:26] LABS: Basophils # (Auto) 0.08 K/mcL (0.00-0.30); Basophils % (Auto) 0.8 % (0.0-2.0); Eosinophils # (Auto) 0.12 K/mcL (0.00-0.70); Eosinophils % (Auto) 1.2 % (0.0-7.0); Granulocytes % (Auto) 75.4 % (38.0-78.0); Hematocrit 34.2 % (40.1-51.0); Hemoglobin 11.5 g/dL (13.7-17.5); Lymphocytes # (Auto) 1.53 K/mcL (1.50-4.80); Lymphocytes % (Auto) 14.8 % (15.5-49.0); Mean Cell Volume 89.3 fL (80.0-100.0); Mean Corpuscular HGB Conc 33.6 g/dL (31.0-36.0); Mean Platelet Volume 8.4 fL (7.4-10.4); Monocytes # (Auto) 0.81 K/mcL (0.10-0.90); Monocytes % (Auto) 7.8 % (1.0-12.0); Platelet Count 472 K/mcL (140-440); RBC 3.83 M/mcL (4.63-6.08); Red Cell Distribution Width 11.9 % (11.5-14.5); WBC 10.3 K/mcL (4.50-11.00)
[2020-03-08] MEDS ORDERED: LORazepam 1 MG TABLET PO PRN (13:29)
--- NOTE | 2020-03-08 14:19 | General Surgery Progress Note ---
Subjective Patient reports: feels better, still having pain, pain is less, voiding w/o difficulty, flatus, bowel movement, diarrhea, afebrile Narrative: Note initiated : 03/08/20 at 2:17 pm Service Date, if different from initiated Date: [] Patient: Derrick Summers 64 y/o M admitted on 03/04/20 for Elevated wbc, ab scess and diverticulitis. Chief Complaint: [patient was stable. He has had some flatus and small amount of bowel movement per stoma. He still has some abdominal distention. White blood count 10.3, hemoglobin 11.5, hematocrit 34.2, potassium 3.4, BUN 14, creatinine 0.6, phosphorus 2.1.] Objective Temp Pulse Resp BP Pulse Ox 97.4 F 94 H 18 153/86 93 03/08/20 12:00 03/08/20 12:00 03/08/20 12:00 03/08/20 12:00 03/08/20 12:00 - Additional Data Intake & Output - Last 24 hours: Intake & Output 03/06/20 03/07/20 03/08/20 03/09/20 05:59 05:59 05:59 05:59 Intake Total 5575 2800 2710 1300 Output Total 2815 2895 2803 550 Balance 2760 -95 -93 750 Weight 222 lb 225 lb 9.6 oz 224 lb 8 oz - General physical appearance well developed, well nourished, no distress - Eyes PERRL, normal ocular movement - ENT normal pinna, normal nares, normal mucosa, no hearing loss, no congestion - Neck no masses, no bruits, trachea midline, no lymphadenopathy, no venous distension - Respiratory normal expansion, normal respiratory effort, clear to auscultation - Cardiovascular Cardiovascular exam: Present: normal rate and rhythm, RRR, +S1, +S2. Absent: JVD, tachycardia - Abdomen tender (moderate tenderness especially along incision), bowel sounds ( good active bowel sounds), surgical scars (none), wound (. Left lower quadrant is functioning adequately), masses (none) - Integumentary no rash, no growths, no abnormal pigmentation - Neurologic normal coordination, normal sensation - Musculoskeletal normal gait, normal posture - Psychiatric oriented to time, oriented to person, oriented to place, speech is normal, memory intact - Labs 03/08/20 05:25 03/08/20 05:25 Diabetes panel 03/08/20 Range/Units 05:25 Sodium 139 (133-145) mmol/L Potassium 3.4 (3.3-5.1) mmol/L Chloride 100 (96-108) mmol/L Carbon Dioxide 24 (22-30) mmol/L BUN 14 (8-23) mg/dl Creatinine 0.6 L (0.7-1.2) mg/dl Glucose 95 (70-105) mg/dL Calcium 8.4 L (8.6-10.4) mg/dl AST 13 (0-37) U/l ALT 8 (0-40) U/l Alkaline Phosphatase 41 (39-117) U/L Total Protein 5.8 L (5.9-8.4) gm/dL Albumin 2.8 L (3.2-5.2) gm/dL Triglycerides 106 (<150) mg/dl Calcium panel 03/08/20 Range/Units 05:25 Calcium 8.4 L (8.6-10.4) mg/dl Phosphorus 2.1 L (2.7-4.5) mg/dL Albumin 2.8 L (3.2-5.2) gm/dL Pituitary panel 03/08/20 Range/Units 05:25 Sodium 139 (133-145) mmol/L Potassium 3.4 (3.3-5.1) mmol/L Chloride 100 (96-108) mmol/L Carbon Dioxide 24 (22-30) mmol/L BUN 14 (8-23) mg/dl Creatinine 0.6 L (0.7-1.2) mg/dl Glucose 95 (70-105) mg/dL Calcium 8.4 L (8.6-10.4) mg/dl Adrenal panel 03/08/20 Range/Units 05:25 Sodium 139 (133-145) mmol/L Potassium 3.4 (3.3-5.1) mmol/L Chloride 100 (96-108) mmol/L Carbon Dioxide 24 (22-30) mmol/L BUN 14 (8-23) mg/dl Creatinine 0.6 L (0.7-1.2) mg/dl Glucose 95 (70-105) mg/dL Calcium 8.4 L (8.6-10.4) mg/dl Total Bilirubin 0.4 (0.0-1.0) mg/dL AST 13 (0-37) U/l ALT 8 (0-40) U/l Alkaline Phosphatase 41 (39-117) U/L Total Protein 5.8 L (5.9-8.4) gm/dL Albumin 2.8 L (3.2-5.2) gm/dL Assessment and Plan (1) Diverticulitis of intestine with abscess Status: Acute Assessment and plan: Patient is clinically improved status post sigmoid colectomy with colostomy Discontinue nasogastric tube Clear liquid diet Ativan 1 mg daily at bedtime when necessary Current Visit: Yes (2) Umbilical hernia Status: Acute Current Visit: No (3) Hypertension, essential Status: Chronic Current Visit: No (4) Kidney mass Status: Acute Current Visit: Yes - Time Spent With Patient Total time spent is greater than 50% in coordination of care (as documented) at patient's floor/unit and/or counseling patient:
[2020-03-08] MEDS ORDERED: POTASSIUM PHOSPHATE 40 MEQ in DEXTROSE 5% IN WATER 500 ML IV ONE (14:21)
[2020-03-08] MEDS: TAMSULOSIN 0.4 MG CAPSULE PO SCH (20:48)
[2020-03-09] MEDS: METOCLOPRAMIDE 10 MG/2 ML VIAL IV SCH ×4 (05:33→23:39)
[2020-03-09] MEDS: CEFEPIME 2 GM VIAL IV SCH ×3 (05:34→21:25)
[2020-03-09] MEDS: 0.9 % SODIUM CHLORIDE 1,000 ML IV SCH ×4 (05:34→22:50)
[2020-03-09] MEDS: ACETAMINOPHEN 1,000 MG/100 ML BOTTLE IV SCH ×4 (05:48→23:39)
[2020-03-09] MEDS: 0.9 % SODIUM CHLORIDE 10 ML SYRINGE IV SCH ×3 (05:49→21:26)
[2020-03-09] MEDS: metroNIDAZOLE 500 MG/100 ML BAG IV SCH ×3 (06:23→21:25)
[2020-03-09] MEDS: PANTOPRAZOLE 40 MG VIAL IV SCH ×2 (07:08→17:14)
--- NOTE | 2020-03-09 11:52 | Operative Note ---
DATE OF OPERATION: 03/05/2020 PREOPERATIVE DIAGNOSES: Acute diverticulitis with pelvic abscess. POSTOPERATIVE DIAGNOSES: Acute diverticulitis with multiple pelvic abscesses. PROCEDURE: Sigmoid colectomy with colostomy and drainage of multiple pelvic abscesses. SURGEON: Lashae Foster M.D. FINDINGS: Major inflammation of the sigmoid colon with a large phlegmon of the colon, small bowel, and bladder with abscesses which extended into the deep pelvis and right lower quadrant. DESCRIPTION OF PROCEDURE: Under general anesthesia, the patient's abdomen was prepped and draped in a sterile field. Lower midline incision was made. Upon entering the abdomen, a small amount of turbid fluid was encountered. This was irrigated and suctioned. The omentum was stuck in the pelvis and was bluntly dissected free from the area of the bladder and the sigmoid colon. This unroofed a large phlegmon which involved the sigmoid colon and multiple loops of small bowel and bladder. Using blunt dissection, I initially the sigmoid colon and small bowel from the bladder. I carried this dissection into the deep pelvis and two abscesses were encountered. Cultures were taken and the area was copiously irrigated with saline. I dissected along the anterior surface of the rectum down into the deep pelvis. Next, I dissected the right side of the rectosigmoid and another abscess cavity was encountered. It was bluntly fractionated with finger dissection and copiously irrigated. This abscess cavity was densely adherent to multiple loops of small bowel which were free using blunt dissection. Once the bowel was dissected free, it was inspected, and it appeared to be secondarily inflamed but otherwise was unremarkable. Next, the sigmoid colon in the left lower quadrant was dissected using primarily finger dissection. There was a large inflamed mass of the mid-sigmoid which was dissected free. I then divided the colon proximal and distal to this large phlegmon, and this was carried out with a Contour stapler. The mesentery was divided with Voyant cautery device. The specimen was passed off. Copious irrigation was carried out once more. The sigmoid was then mobilized along the lateral line of Toldt up to the mid-descending colon. This allowed enough length for the colon to be brought safely through the anterior wall without tension. The colon had very large tenia coli which were dissected and then excised to reduce the bulk of bowel that had to be brought through the opening. The opening for the stoma was made in the anterior abdominal wall skilled nursing between umbilicus and anterior superior iliac spine. The skin was excised with a scalpel, and the subcutaneous tissue and muscle was scored using electrocautery. The defect was stretched so that the colon could be brought through comfortably. Once this was done, the wall of the colon was sutured to the peritoneum using six sutures of 3-0 silk. Irrigation was carried out in the pelvis once more. Two AALIYAH drains were placed and brought out through separate incisions in the right lower quadrant. These drains were positioned in the left gutter and in the deep pelvis. Sponge, needle, instrument, and blade counts were verified as correct. Peritoneum and fascia were closed with running #1 Prolene. Subcutaneous tissue was irrigated and closed with 2-0 Monocryl. Skin was closed with claudia. The incision was covered and the stoma was matured. The wall of the colon was sutured to the anterior rectus fascia using interrupted 3-0 silk. The end of the bowel was sutured to the dermis circumferentially using running 3-0 Vicryl. A stoma appliance was placed. Tegaderm was placed over the incision and drain sponges were placed around drains. The patient tolerated the procedure well. He was awakened uneventfully, extubated, and transferred to the postanesthetic care unit in satisfactory condition. LCS:marlon Job ID: [id number] Doc ID: [id number] Lashae Foster M.D.
--- NOTE | 2020-03-09 17:16 | General Surgery Progress Note ---
Subjective Patient reports: no new complaints, feels better, tolerating a regular diet, flatus, bowel movement, afebrile Narrative: Note initiated : 03/09/20 at 5:14 pm Service Date, if different from initiated Date: [] Patient: Derrick Summers 64 y/o M admitted on 03/04/20 for Elevated wbc, abscess and diverticulitis. Chief Complaint: [patient continues to improve. he is tolerating soft diet without difficulty. he denies nausea. AALIYAH drainage is still mildly serosanguineous. His stoma is functioning well and he received instructions from the enterostomal therapist.] Objective Temp Pulse Resp BP Pulse Ox 98.5 F 84 18 146/79 94 03/09/20 15:43 03/09/20 15:43 03/09/20 15:43 03/09/20 15:43 03/09/20 15:43 - Additional Data Intake & Output - Last 24 hours: Intake & Output 03/07/20 03/08/20 03/09/20 03/10/20 05:59 05:59 05:59 05:59 Intake Total 2800 2710 3750 1340 Output Total 2895 2803 2090 1441 Balance -95 -93 1660 -101 Weight 225 lb 9.6 oz 224 lb 8 oz 226 lb 8 oz 226 lb 8 oz - General physical appearance well developed, well nourished, no distress - Eyes PERRL, normal ocular movement - ENT normal pinna, normal nares, normal mucosa, no hearing loss, no congestion - Neck no masses, no bruits, trachea midline, no lymphadenopathy, no venous distension - Respiratory normal expansion, normal respiratory effort, clear to auscultation - Cardiovascular Cardiovascular exam: Present: normal rate and rhythm, RRR, +S1, +S2. Absent: JVD, tachycardia - Abdomen non tender, bowel sounds (present), surgical scars (none), wound (stoma is healthy and is functioning normally), masses (none) - Integumentary no rash, no growths, no abnormal pigmentation - Neurologic normal coordination, normal sensation - Musculoskeletal normal gait, normal posture - Psychiatric oriented to time, oriented to person, oriented to place, speech is normal, memory intact - Labs 03/08/20 05:25 03/08/20 05:25 Assessment and Plan (1) Diverticulitis of intestine with abscess Status: Acute Assessment and plan: Patient is clinically improved status post sigmoid colectomy with colostomy GI soft diet Ativan 1 mg daily at bedtime when necessary Current Visit: Yes (2) Umbilical hernia Status: Acute Current Visit: No (3) Hypertension, essential Status: Chronic Current Visit: No (4) Kidney mass Status: Acute Current Visit: Yes - Time Spent With Patient Total time spent is greater than 50% in coordination of care (as documented) at patient's floor/unit and/or counseling patient:
[2020-03-09] MEDS: TAMSULOSIN 0.4 MG CAPSULE PO SCH (21:25)
[2020-03-10] MEDS: 0.9 % SODIUM CHLORIDE 1,000 ML IV SCH ×2 (03:20→12:34)
[2020-03-10] MEDS: ACETAMINOPHEN 1,000 MG/100 ML BOTTLE IV SCH ×2 (05:04→12:34)
[2020-03-10] MEDS: METOCLOPRAMIDE 10 MG/2 ML VIAL IV SCH ×2 (05:45→12:34)
[2020-03-10] MEDS: CEFEPIME 2 GM VIAL IV SCH ×2 (05:45→14:25)
[2020-03-10] MEDS: metroNIDAZOLE 500 MG/100 ML BAG IV SCH ×2 (05:46→14:25)
[2020-03-10] MEDS: 0.9 % SODIUM CHLORIDE 10 ML SYRINGE IV SCH ×2 (05:46→14:25)
[2020-03-10 06:55] LABS: Basophils # (Auto) 0.06 K/mcL (0.00-0.30); Basophils % (Auto) 0.7 % (0.0-2.0); Eosinophils # (Auto) 0.27 K/mcL (0.00-0.70); Eosinophils % (Auto) 3.2 % (0.0-7.0); Granulocytes % (Auto) 75.4 % (38.0-78.0); Hematocrit 28.4 % (40.1-51.0); Hemoglobin 9.7 g/dL (13.7-17.5); Lymphocytes # (Auto) 1.31 K/mcL (1.50-4.80); Lymphocytes % (Auto) 15.7 % (15.5-49.0); Mean Cell Volume 86.6 fL (80.0-100.0); Mean Corpuscular HGB Conc 34.2 g/dL (31.0-36.0); Mean Platelet Volume 8.2 fL (7.4-10.4); Monocytes # (Auto) 0.42 K/mcL (0.10-0.90); Platelet Count 400 K/mcL (140-440); RBC 3.28 M/mcL (4.63-6.08); Red Cell Distribution Width 11.7 % (11.5-14.5); WBC 8.4 K/mcL (4.50-11.00)
[2020-03-10 07:09] LABS: ALT/SGPT 10 U/l (0-40); AST/SGOT 17 U/l (0-37); Albumin 2.4 gm/dL (3.2-5.2); Albumin/Globulin Ratio 0.8 (1.0-2.3); Alkaline Phosphatase 37 U/L (39-117); Bilirubin,Direct < 0.2 mg/dL (0.0-0.3); Bilirubin,Total 0.3 mg/dL (0.0-1.0); Blood Urea Nitrogen 9 mg/dl (8-23); Calcium 8.1 mg/dl (8.6-10.4); Carbon Dioxide 25 mmol/L (22-30); Chloride 104 mmol/L (96-108); Globulin 2.9 gm/dL (2.2-3.7); Glomerular Filtration Rate 100; Glucose 96 mg/dL (70-105); Lactate Dehydrogenase 160 U/L (94-250); Phosphorous 2.5 mg/dL (2.7-4.5); Triglycerides 96 mg/dl (<150); Uric Acid 3.8 mg/dL (2.5-8.0)
[2020-03-10] MEDS: PANTOPRAZOLE 40 MG VIAL IV SCH (08:03)
--- NOTE | 2020-03-10 14:19 | Discharge Summary ---
Providers - Providers Patient information: Note initiated : 03/10/20 at 2:16 pm Service Date, if different from initiated Date: [] Patient: Derrick Summers 64 y/o M admitted on 03/04/20 for Elevated wbc, abscess and diverticulitis. Chief Complaint: [] Date of admission: 03/04/20 Discharge date: 03/10/20 Attending physician: Lashae Foster Hospitalization Hospital Course: 64-year-old male with known history of diverticulitis was treated for 10 days prior to admission. He was treated with ciprofloxacin and metronidazole. Follow-up CT showed progression of diverticulitis and multiple pelvic abscesses. His white blood count was up to 17,000 he appear to be toxic. Patient was admitted and started on IV antibiotics. On 05 March a laparotomy was done and he was found to have a large phlegmon of the pelvis involving small bowel loops: And bladder and omentum. Segmental sigmoid colectomy with colostomy was carried out and drainage of the large pelvic abscesses were completed. Mynor-Jones drains were placed and have been in place since that time. Patient's white blood count has decreased and is now normal. His stoma is functioning normally and he is having semi-formed stools. He is tolerating diet without difficulty. He has been afebrile and is stable. Discharged home. Discharge diagnosis: acute diverticulitis with pelvic abscess Secondary discharge diagnosis: Hypertension Right renal mass Cholelithiasis asymptomatic Reason for admission: diverticulitis with perforation with failed outpatient tr eatment Procedures: Sigmoid colectomy with colostomy and drainage of multiple pelvic abscesses Pertinent studies/significant findings: CT of abdomen and pelvis with IV contrast Complications: None Exam Temp Pulse Resp BP Pulse Ox 98.9 F 84 16 162/84 96 03/10/20 12:00 03/10/20 12:00 03/10/20 12:00 03/10/20 12:00 03/10/20 12:00 - General physical appearance well developed, well nourished, no distress - Eyes PERRL, normal ocular movement - ENT normal pinna, normal nares, normal mucosa, no hearing loss, no congestion - Head Head exam IM: Present: atraumatic, normocephalic - Neck no masses, no bruits, trachea midline, no lymphadenopathy, no venous distension - Cardiovascular Cardiovascular exam IM: Present: normal rate and rhythm - Respiratory normal expansion, normal respiratory effort, clear to auscultation - Abdomen Abdomen: Present: soft, non tender, bowel sounds, surgical scars (midline incision is healing uneventfully), wound ( healthy functioning stoma in left lower quadrant) Hernia: Present: none - Genitourinary Present: normal penis with no external lesions - Integumentary Present: no rash, no growths, no abnormal pigmentation - Neurologic Present: normal coordination, normal sensation - Musculoskeletal Present: normal gait, normal posture - Psychiatric Present: oriented to time, oriented to person, oriented to place, speech is normal, memory intact Discharge Plan - Patient/Caregiver Discharge Instructions Activity: increase activity as tolerated Diet: Regular Diet Additional Instructions: Empty AALIYAH drains once daily as needed Contact office if you have any difficulty with his stoma Prescriptions: Ciprofloxacin [Cipro] 500 mg PO BID #20 tab Transmission Status: Sent to [email or web address] metroNIDAZOLE [Flagyl] 500 mg PO Q8 #30 tab Transmission Status: Pending to [email or web address] - Follow up Plan Follow up with: Ronald Austin DO [Primary Care Provider] - Lashae Foster MD [Physician] - (Contact the office to make an appointment for 2 weeks) Disposition: Home, Self-Care Plan of Treatment: This discharge packet is provided to you to help keep you informed about your care. We want to ensure you get everything you need when you go home. You will also be receiving a call from us in a few days to follow up with you and see how you are doing since your discharge. This gives us a chance to listen to any concerns you maybe experiencing since you were discharged or any additional needs you may have, as well as providing us feedback on your care experience. We strive to always provide excellent care and thank you for your feedback and for choosing [facility]. Prognosis: Good Rehab Potential: Good I certify that the patient requires SNF services.: No Overall status at discharge: patient is progressing back to baseline Pending Studies Resuscitation Status Full Code Diet GI Soft/Transitional Start SatMar 09 1717 Cefepime HCl (Maxipime) 2 gm IV Q8H [facility]; Protocol Last Admin: 03/10/20 05:45 Dose: 2 gm Documented by: Admin: 03/09/20 21:25 Dose: 2 gm Documented by: Admin: 03/09/20 13:42 Dose: 2 gm Documented by: Admin: 03/09/20 05:34 Dose: 2 gm Documented by: Admin: 03/08/20 21:28 Dose: 2 gm Documented by: Admin: 03/08/20 14:09 Dose: 2 gm Documented by: Admin: 03/08/20 06:03 Dose: 2 gm Documented by: Admin: 03/07/20 22:39 Dose: 2 gm Documented by: Admin: 03/07/20 14:13 Dose: 2 gm Documented by: Admin: 03/07/20 05:59 Dose: 2 gm Documented by: Admin: 03/06/20 21:58 Dose: 2 gm Documented by: Admin: 03/06/20 13:54 Dose: 2 gm Documented by: Admin: 03/06/20 05:17 Dose: 2 gm Documented by: Admin: 03/05/20 22:17 Dose: 2 gm Documented by: Admin: 03/05/20 14:59 Dose: 2 gm Documented by: STEPHEN Hydralazine HCl (Apresoline) 10 mg IV Q4 PRN PRN Reason: Hypertension Last Admin: 03/08/20 16:00 Dose: 10 mg Documented by: Admin: 03/08/20 03:36 Dose: 10 mg Documented by: Admin: 03/07/20 18:11 Dose: 10 mg Documented by: STEPHEN Hydromorphone HCl (Dilaudid) 0.5 mg IV Q2HP PRN; Protocol PRN Reason: Per Pain Protocol Last Admin: 03/08/20 17:01 Dose: 0.5 mg Documented by: Admin: 03/08/20 08:10 Dose: 0.5 mg Documented by: Admin: 03/07/20 20:11 Dose: 0.5 mg Documented by: Admin: 03/07/20 05:58 Dose: 0.5 mg Documented by: Admin: 03/06/20 07:23 Dose: 0.5 mg Documented by: Admin: 03/06/20 03:23 Dose: 0.5 mg Documented by: LSCULLY Metronidazole (Flagyl) 500 mg in 100 mls @ 100 mls/hr IV Q8H [facility]; Protocol Last Infusion: 03/10/20 06:55 Dose: 0 mls/hr Documented by: Admin: 03/10/20 05:46 Dose: 100 mls/hr Documented by: Infusion: 03/09/20 22:35 Dose: 0 mls/hr Documented by: Admin: 03/09/20 21:25 Dose: 100 mls/hr Documented by: LSCULLDagoberto Infusion: 03/09/20 14:49 Dose: 0 mls/hr Documented by: Admin: 03/09/20 13:42 Dose: 100 mls/hr Documented by: Infusion: 03/09/20 07:25 Dose: 0 mls/hr Documented by: Admin: 03/09/20 06:23 Dose: 100 mls/hr Documented by: Infusion: 03/08/20 22:35 Dose: 100 mls/hr Documented by: Admin: 03/08/20 21:35 Dose: 100 mls/hr Documented by: Infusion: 03/08/20 15:09 Dose: 100 mls/hr Documented by: Admin: 03/08/20 14:09 Dose: 100 mls/hr Documented by: Infusion: 03/08/20 06:46 Dose: 0 mls/hr Documented by: Admin: 03/08/20 05:46 Dose: 100 mls/hr Documented by: Infusion: 03/08/20 00:55 Dose: 0 mls/hr Documented by: Admin: 03/07/20 22:39 Dose: 100 mls/hr Documented by: Infusion: 03/07/20 15:13 Dose: 100 mls/hr Documented by: Admin: 03/07/20 14:13 Dose: 100 mls/hr Documented by: Infusion: 03/07/20 05:51 Dose: 0 mls/hr Documented by: SMHALJessica Admin: 03/07/20 04:51 Dose: 100 mls/hr Documented by: Infusion: 03/06/20 22:58 Dose: 100 mls/hr Documented by: Admin: 03/06/20 21:58 Dose: 100 mls/hr Documented by: Infusion: 03/06/20 14:54 Dose: 0 mls/hr Documented by: Admin: 03/06/20 13:54 Dose: 100 mls/hr Documented by: Infusion: 03/06/20 07:01 Dose: 0 mls/hr Documented by: Admin: 03/06/20 06:01 Dose: 100 mls/hr Documented by: Infusion: 03/05/20 23:20 Dose: 0 mls/hr Documented by: Admin: 03/05/20 22:18 Dose: 100 mls/hr Documented by: Infusion: 03/05/20 15:53 Dose: 0 mls/hr Documented by: Admin: 03/05/20 14:53 Dose: 100 mls/hr Documented by: STEPHEN Sodium Chloride (Sodium Chloride 0.9%) 1,000 mls @ 125 mls/hr IV .Q8H [facility] Rust Admin: 03/10/20 12:34 Dose: 125 mls/hr Documented by: Infusion: 03/10/20 11:20 Dose: 125 mls/hr Documented by: Admin: 03/10/20 03:20 Dose: 125 mls/hr Documented by: Infusion: 03/10/20 01:12 Dose: 125 mls/hr Documented by: Admin: 03/09/20 22:50 Dose: Not Given Documented by: Admin: 03/09/20 17:12 Dose: 125 mls/hr Documented by: Infusion: 03/09/20 13:34 Dose: 125 mls/hr Documented by: Admin: 03/09/20 05:34 Dose: 125 mls/hr Documented by: Admin: 03/08/20 23:38 Dose: Not Given Documented by: Infusion: 03/08/20 20:54 Dose: 125 mls/hr Documented by: Admin: 03/08/20 12:54 Dose: 125 mls/hr Documented by: Infusion: 03/08/20 11:32 Dose: 125 mls/hr Documented by: Admin: 03/08/20 03:32 Dose: 125 mls/hr Documented by: Admin: 03/08/20 00:55 Dose: Not Given Documented by: Infusion: 03/07/20 20:26 Dose: 0 mls/hr Documented by: Admin: 03/07/20 12:26 Dose: 125 mls/hr Documented by: Infusion: 03/07/20 11:11 Dose: 125 mls/hr Documented by: Admin: 03/07/20 03:11 Dose: 125 mls/hr Documented by: Infusion: 03/07/20 01:51 Dose: 125 mls/hr Documented by: Admin: 03/06/20 22:55 Dose: Not Given Documented by: Admin: 03/06/20 17:51 Dose: 125 mls/hr Documented by: Infusion: 03/06/20 16:51 Dose: 125 mls/hr Documented by: Admin: 03/06/20 12:23 Dose: Not Given Documented by: Admin: 03/06/20 08:51 Dose: 125 mls/hr Documented by: Admin: 03/06/20 05:02 Dose: Not Given Documented by: Infusion: 03/06/20 03:37 Dose: 125 mls/hr Documented by: Admin: 03/05/20 19:37 Dose: 125 mls/hr Documented by: LSCULLDagoberto Infusion: 03/05/20 19:36 Dose: 125 mls/hr Documented by: Admin: 03/05/20 11:36 Dose: 125 mls/hr Documented by: STEPHEN Acetaminophen (Ofirmev) 1,000 mg in 100 mls @ 200 mls/hr IV Q6 [facility]; Protocol Last Admin: 03/10/20 12:34 Dose: 200 mls/hr Documented by: Infusion: 03/10/20 05:40 Dose: 0 mls/hr Documented by: LSCULLDagoberto Admin: 03/10/20 05:04 Dose: 200 mls/hr Documented by: Infusion: 03/10/20 00:15 Dose: 0 mls/hr Documented by: Admin: 03/09/20 23:39 Dose: 200 mls/hr Documented by: Infusion: 03/09/20 17:44 Dose: 200 mls/hr Documented by: Admin: 03/09/20 17:14 Dose: 200 mls/hr Documented by: Infusion: 03/09/20 12:45 Dose: 0 mls/hr Documented by: Admin: 03/09/20 11:42 Dose: 200 mls/hr Documented by: Infusion: 03/09/20 06:20 Dose: 0 mls/hr Documented by: Admin: 03/09/20 05:48 Dose: 200 mls/hr Documented by: Infusion: 03/08/20 23:59 Dose: 200 mls/hr Documented by: Admin: 03/08/20 23:29 Dose: 200 mls/hr Documented by: Infusion: 03/08/20 18:29 Dose: 200 mls/hr Documented by: Admin: 03/08/20 17:59 Dose: 200 mls/hr Documented by: Infusion: 03/08/20 12:29 Dose: 0 mls/hr Documented by: Admin: 03/08/20 12:09 Dose: 200 mls/hr Documented by: Infusion: 03/08/20 06:15 Dose: 0 mls/hr Documented by: Admin: 03/08/20 05:45 Dose: 200 mls/hr Documented by: Infusion: 03/08/20 00:55 Dose: 0 mls/hr Documented by: Admin: 03/07/20 23:58 Dose: 200 mls/hr Documented by: Infusion: 03/07/20 18:41 Dose: 200 mls/hr Documented by: Admin: 03/07/20 18:11 Dose: 200 mls/hr Documented by: Infusion: 03/07/20 12:49 Dose: 0 mls/hr Documented by: Admin: 03/07/20 12:19 Dose: 200 mls/hr Documented by: Infusion: 03/07/20 06:28 Dose: 0 mls/hr Documented by: Admin: 03/07/20 05:58 Dose: 200 mls/hr Documented by: Infusion: 03/07/20 00:26 Dose: 200 mls/hr Documented by: Admin: 03/06/20 23:56 Dose: 200 mls/hr Documented by: Infusion: 03/06/20 17:50 Dose: 200 mls/hr Documented by: Admin: 03/06/20 17:20 Dose: 200 mls/hr Documented by: Infusion: 03/06/20 11:59 Dose: 0 mls/hr Documented by: Admin: 03/06/20 11:29 Dose: 200 mls/hr Documented by: Infusion: 03/06/20 05:43 Dose: 0 mls/hr Documented by: Admin: 03/06/20 05:03 Dose: 200 mls/hr Documented by: Infusion: 03/06/20 00:36 Dose: 0 mls/hr Documented by: Admin: 03/05/20 23:34 Dose: 200 mls/hr Documented by: Infusion: 03/05/20 20:02 Dose: 0 mls/hr Documented by: Admin: 03/05/20 18:46 Dose: 200 mls/hr Documented by: PABLO Lorazepam (Ativan) 1 mg PO HSP PRN PRN Reason: Insomnia Last Admin: 03/08/20 20:48 Dose: 1 mg Documented by: JOYCE Metoclopramide HCl (Reglan) 10 mg IV Q6 FRANCESCA Last Admin: 03/10/20 12:34 Dose: 10 mg Documented by: Admin: 03/10/20 05:45 Dose: 10 mg Documented by: Admin: 03/09/20 23:39 Dose: 10 mg Documented by: Admin: 03/09/20 17:14 Dose: 10 mg Documented by: Admin: 03/09/20 11:41 Dose: 10 mg Documented by: Admin: 03/09/20 05:33 Dose: 10 mg Documented by: Admin: 03/08/20 23:29 Dose: 10 mg Documented by: Admin: 03/08/20 17:08 Dose: 10 mg Documented by: Admin: 03/08/20 12:09 Dose: 10 mg Documented by: Admin: 03/08/20 06:02 Dose: 10 mg Documented by: Admin: 03/07/20 23:58 Dose: 10 mg Documented by: Admin: 03/07/20 18:10 Dose: 10 mg Documented by: Admin: 03/07/20 12:18 Dose: 10 mg Documented by: Admin: 03/07/20 05:59 Dose: 10 mg Documented by: Admin: 03/06/20 23:55 Dose: 10 mg Documented by: Admin: 03/06/20 17:20 Dose: 10 mg Documented by: STEPHEN Ondansetron HCl (Zofran) 4 mg IV Q6HP PRN PRN Reason: Nausea And Vomiting Last Admin: 03/06/20 17:20 Dose: 4 mg Documented by: Admin: 03/05/20 15:00 Dose: 4 mg Documented by: STEPHEN Pantoprazole Sodium (Protonix) 40 mg IV BIDAC [facility] Last Admin: 03/10/20 08:03 Dose: 40 mg Documented by: Admin: 03/09/20 17:14 Dose: 40 mg Documented by: Admin: 03/09/20 07:08 Dose: 40 mg Documented by: Admin: 03/08/20 17:03 Dose: 40 mg Documented by: Admin: 03/08/20 08:10 Dose: 40 mg Documented by: Admin: 03/07/20 18:11 Dose: 40 mg Documented by: STEPHEN Sodium Chloride (Saline Flush) 10 ml IV Q8 [facility] Last Admin: 03/10/20 05:46 Dose: Not Given Documented by: Admin: 03/09/20 21:26 Dose: Not Given Documented by: Admin: 03/09/20 13:43 Dose: 10 ml Documented by: Admin: 03/09/20 05:49 Dose: 10 ml Documented by: Admin: 03/08/20 21:29 Dose: 10 ml Documented by: Admin: 03/08/20 14:09 Dose: 10 ml Documented by: Admin: 03/08/20 05:46 Dose: 10 ml Documented by: Admin: 03/07/20 22:39 Dose: 10 ml Documented by: Admin: 03/07/20 14:13 Dose: 10 ml Documented by: Admin: 03/07/20 06:34 Dose: Not Given Documented by: Admin: 03/06/20 21:58 Dose: 10 ml Documented by: Admin: 03/06/20 15:49 Dose: Not Given Documented by: Admin: 03/06/20 05:03 Dose: 10 ml Documented by: Admin: 03/05/20 22:18 Dose: 10 ml Documented by: Admin: 03/05/20 15:18 Dose: 10 ml Documented by: STEPHEN Tamsulosin HCl (Flomax) 0.4 mg PO HS FRANCESCA Rust Admin: 03/09/20 21:25 Dose: 0.4 mg Documented by: Admin: 03/08/20 20:48 Dose: 0.4 mg Documented by: Admin: 03/07/20 20:11 Dose: 0.4 mg Documented by: JOYCE Shift Summary 03/10/20 02:44 Shift Summary by Nelli [email or web address]. Up with SBA in hallways. Patient using urinal. No complaint of nausea or pain after being started on a GI soft diet last night. Patient getting [facility] for [facility] control. NS @ 125 to LFA. Colostomy is putting out liquid brown. AALIYAH X2 with serous drainage. VSS on RA. Patient has had colostomy teaching. Will update at bedside. Initialized on 03/10/20 02:44 - END OF NOTE
== END 2020-03-10 15:55 | disposition home or self-care (01) | DRG 331 ==
LOC: ED 09:45 → MEDSUR 14:34
PROVIDERS: ADMIT Family Medicine Adult Medicine; ATTEND Family Medicine Adult Medicine

== ENCOUNTER 2020-07-13 04:58 | Inpatient (IN) ==
[2020-07-07 13:50] LABS: Basophils # (Auto) 0.04 K/mcL (0.00-0.20); Basophils % (Auto) 0.6 % (0.0-2.0); Eosinophils # (Auto) 0.06 K/mcL (0.00-0.70); Eosinophils % (Auto) 0.9 % (0.0-7.0); Hematocrit 42.6 % (41.0-55.0); Hemoglobin 14.6 g/dL (13.5-16.5); Lymphocytes # (Auto) 2.21 K/mcL (1.50-4.80); Mean Cell Volume 86.2 fL (80.0-100.0); Mean Corpuscular HGB Conc 34.3 g/dL (31.0-36.0); Mean Platelet Volume 8.8 fL (7.4-10.4); Monocytes # (Auto) 0.48 K/mcL (0.10-0.90); Monocytes % (Auto) 7.2 % (1.0-12.0); Neutrophils % (Auto) 58.3 % (38.0-78.0); Platelet Count 249 K/mcL (140-440); RBC 4.94 M/mcL (4.50-5.90); Red Cell Distribution Width 12.4 % (11.5-14.5); WBC 6.7 K/mcL (4.5-11.0)
[2020-07-07 14:42] LABS: ALT/SGPT 17 U/L (<40); AST/SGOT 17 U/L (<40); Albumin 4.5 gm/dL (3.2-5.2); Albumin/Globulin Ratio 1.8 (1.0-2.3); Alkaline Phosphatase 66 U/L (39-117); Bilirubin,Total 0.5 mg/dL (0.1-1.0); Blood Urea Nitrogen 15 mg/dL (8-23); Calcium 9.8 mg/dL (8.6-10.4); Carbon Dioxide 23 mmol/L (22-30); Chloride 105 mmol/L (96-108); Globulin 2.5 gm/dL (2.2-3.7); Glomerular Filtration Rate 94; Glucose 84 mg/dL (70-105)
--- NOTE | 2020-07-07 14:51 | XRay Report ---
HISTORY: Preop for cholecystectomy FINDINGS: The lungs are clear. The heart, mediastinum, emi and pleura are normal. IMPRESSION: Normal chest. Interpreted and Authenticated by: Edmundo Morales 07/07/20
[2020-07-07 14:58] LABS: Partial Thromboplastin Time 37.1 sec (20.0-37.0); Prothrombin Time 13.9 sec (11.9-14.5)
[2020-07-13] MEDS ORDERED: IPRATROPIUM/ALBUTEROL 3 ML AMPUL.NEB NEB PRN ×2 (05:00→08:32)
[2020-07-13] MEDS ORDERED: SCOPOLAMINE 1 PATCH PATCH TOPICAL PRN (05:00)
[2020-07-13] MEDS ORDERED: LEVOFLOXACIN 750 MG/150 ML BAG IV SCH (06:30)
[2020-07-13] MEDS ORDERED: metroNIDAZOLE 500 MG/100 ML BAG IV SCH (06:30)
[2020-07-13] MEDS ORDERED: ONDANSETRON 4 MG/2 ML VIAL ONE (07:45)
[2020-07-13] MEDS ORDERED: KETAMINE 100 MG/ML ML ONE (07:45)
[2020-07-13] MEDS ORDERED: SUGAMMADEX SODIUM 200 MG/2 ML VIAL IV ONE (07:45)
[2020-07-13] MEDS ORDERED: LIDOCAINE HCL/PF 100 MG/5 ML SYRINGE IV ONE (07:45)
[2020-07-13] MEDS ORDERED: ROCURONIUM 10 MG/ML ML IV ONE (07:45)
[2020-07-13] MEDS ORDERED: DEXAMETHASONE 10 MG/ML VIAL ONE (07:45)
[2020-07-13] MEDS ORDERED: MIDAZOLAM 5 MG/5 ML VIAL ONE (07:45)
[2020-07-13] MEDS ORDERED: PHENYLEPHRINE 10 MG/ML VIAL ONE (07:45)
[2020-07-13] MEDS ORDERED: HETASTARCH 6% 500 ML BAG IV ONE (07:45)
[2020-07-13] MEDS ORDERED: MAGNESIUM SULFATE 2 GM/50 ML BAG IV ONE ×2 (07:45→09:16)
[2020-07-13] MEDS ORDERED: GLYCOPYRROLATE 0.2 MG/ML VIAL IV ONE (07:45)
[2020-07-13] MEDS ORDERED: PROPOFOL 200 MG/20 ML VIAL IV ONE (07:45)
[2020-07-13] MEDS ORDERED: KETOROLAC 30 MG/ML VIAL ONE (07:45)
[2020-07-13] MEDS ORDERED: SUCCINYLCHOLINE 20 MG/ML ML IV ONE (07:45)
[2020-07-13] MEDS ORDERED: HYDROmorphone 1 MG/ML SYRINGE ONE (07:45)
[2020-07-13] MEDS ORDERED: fentaNYL 250 MCG/5 ML VIAL IV ONE (07:45)
[2020-07-13] MEDS ORDERED: ROPIVACAINE HCL/PF 20 ML VIAL IJ ONE (07:45)
[2020-07-13] MEDS ORDERED: FLUMAZENIL 0.1 MG/ML ML IV PRN (08:32)
[2020-07-13] MEDS ORDERED: fentaNYL 100 MCG/2 ML VIAL IV PRN (08:32)
[2020-07-13] MEDS ORDERED: HYDROmorphone 0.5 MG/0.5 ML SYRINGE IV PRN (08:32)
[2020-07-13] MEDS ORDERED: METOPROLOL TARTRATE 5 MG/5 ML VIAL IV PRN (08:32)
[2020-07-13] MEDS ORDERED: NALOXONE HCL 0.4 MG/ML VIAL IV PRN (08:32)
[2020-07-13] MEDS ORDERED: METHOCARBAMOL 1,000 MG/10 ML VIAL IV PRN (08:32)
[2020-07-13] MEDS ORDERED: LACTATED RINGERS 250 ML IV PRN (08:32)
[2020-07-13] MEDS ORDERED: LABETALOL 5 MG/ML ML IV PRN (08:32)
[2020-07-13] MEDS ORDERED: ACETAMINOPHEN 1,000 MG/100 ML BOTTLE IV ONE (08:32)
[2020-07-13] MEDS ORDERED: BENZOCAINE/MENTHOL 1 LOZENGE PO PRN (08:32)
[2020-07-13] MEDS ORDERED: LACTATED RINGERS 1,000 ML IV SCH (08:45)
[2020-07-13] MEDS ORDERED: PROMETHAZINE 25 MG/ML VIAL IV PRN (11:09)
[2020-07-13] MEDS ORDERED: ONDANSETRON 4 MG/2 ML VIAL IV PRN (11:09)
--- NOTE | 2020-07-13 11:09 | Brief Operative Note ---
Brief Operative Note Date of procedure: 07/13/20 Pre-op diagnosis: colostomy status;cholelithiasis with cholecystitiis Post-op diagnosis: other (colostomy status;cholelithiasis with cholecystitis) Procedure: laparoscopic cholecystectomy colostomy takedown Grafts/Implants: No (sammi drain x1) Anesthesia: GETA Findings: dilated gallbladder with stones extensive adhesions Complications: none Surgeon: Lashae Foster Estimated blood loss (cc): 200 Specimens Removed/Pathology: other (gallbladder;stoma end) Condition: stable Disposition: PACU
[2020-07-13] MEDS: 0.9 % SODIUM CHLORIDE 1,000 ML IV SCH ×2 (12:00→20:08)
[2020-07-13] MEDS: 0.9 % SODIUM CHLORIDE 10 ML SYRINGE IV SCH ×2 (14:19→21:54)
[2020-07-13] MEDS ORDERED: 0.9 % SODIUM CHLORIDE 250 ML IV SCH (15:00)
[2020-07-13] MEDS: SENNOSIDES 1 TABLET PO SCH (21:53)
[2020-07-13] MEDS: DOCUSATE SODIUM 100 MG CAPSULE PO SCH (21:53)
[2020-07-13] MEDS: HYDROmorphone 1 MG/ML SYRINGE IV PRN (22:21)
[2020-07-14] MEDS: 0.9 % SODIUM CHLORIDE 1,000 ML IV SCH ×3 (03:52→20:55)
[2020-07-14] MEDS: HYDROmorphone 1 MG/ML SYRINGE IV PRN ×4 (03:56→20:55)
[2020-07-14] MEDS: LEVOFLOXACIN 500 MG/100 ML BAG IV SCH (09:20)
[2020-07-14] MEDS: 0.9 % SODIUM CHLORIDE 10 ML SYRINGE IV SCH ×3 (09:20→20:53)
[2020-07-14] MEDS: DOCUSATE SODIUM 100 MG CAPSULE PO SCH ×2 (09:20→20:53)
[2020-07-14 09:31] LABS: ALT/SGPT 30 U/L (<40); AST/SGOT 32 U/L (<40); Albumin 3.3 gm/dL (3.2-5.2); Albumin/Globulin Ratio 1.6 (1.0-2.3); Alkaline Phosphatase 47 U/L (39-117); Basophils # (Auto) 0 K/mcL (0.00-0.20); Basophils % (Auto) 0 % (0.0-2.0); Bilirubin,Direct 0.2 mg/dL (<0.3); Bilirubin,Total 0.7 mg/dL (0.1-1.0); Blood Urea Nitrogen 16 mg/dL (8-23); Calcium 8.3 mg/dL (8.6-10.4); Carbon Dioxide 20 mmol/L (22-30); Chloride 106 mmol/L (96-108); Eosinophils # (Auto) 0 K/mcL (0.00-0.70); Eosinophils % (Auto) 0 % (0.0-7.0); Glomerular Filtration Rate 94; Glucose 119 mg/dL (70-105); Hematocrit 38.5 % (41.0-55.0); Lactate Dehydrogenase 173 U/L (135-225); Lymphocytes # (Auto) 1.04 K/mcL (1.50-4.80); Lymphocytes % (Auto) 8.7 % (15.0-49.0); Mean Cell Volume 87.3 fL (80.0-100.0); Mean Corpuscular HGB Conc 33.8 g/dL (31.0-36.0); Mean Platelet Volume 8.8 fL (7.4-10.4); Monocytes # (Auto) 0.92 K/mcL (0.10-0.90); Monocytes % (Auto) 7.7 % (1.0-12.0); Neutrophils % (Auto) 83.6 % (38.0-78.0); Phosphorous 3.6 mg/dL (2.5-4.5); Platelet Count 214 K/mcL (140-440); RBC 4.41 M/mcL (4.50-5.90); Red Cell Distribution Width 12.4 % (11.5-14.5); Triglycerides 85 mg/dL (<150); Uric Acid 5.8 mg/dL (2.5-8.0)
--- NOTE | 2020-07-14 18:26 | General Surgery Progress Note ---
SUBJECTIVE Subjective Patient information: Note initiated : 07/14/20 at 6:21 pm Service Date, if different from initiated Date: [] Patient: Derrick Summers 64 y/o M admitted on 07/13/20 for Laparoscopic Cholecystectomy, Possible Open and. Chief Complaint: [] Principal diagnosis: cholelithiasis with cholecystitis; colostomy status Interval history: patient was admitted for laparoscopic cholecystectomy and colostomy takedown. He tolerated the procedures very well and has done well. He's had a small amount of flatus. He denies nausea. White count 12.1, hemoglobin 13, hematocrit 38.5, potassium 4.7, BUN 16, creatinine 0.8, liver panel all normal. Constitutional Vitals: Vital Signs Temp Pulse Resp BP Pulse Ox 98.8 F 83 18 137/74 94 07/14/20 16:00 07/14/20 16:00 07/14/20 16:00 07/14/20 16:00 07/14/20 16:00 Period Temp Pulse Resp BP Sys/Hua Pulse Ox Last 24 Hr 97.6 F-98.8 F 74-98 18-20 131-151/72-87 94-97 Intake and Output 07/14/20 07/14/20 07/14/20 05:59 13:59 21:59 Intake Total 967 1460 240 Output Total 0827 106 4270 Balance -143 760 -935 Weight 219 lb 4.8 oz Patient Weight 07/15/20 05:59 Weight 219 lb 4.8 oz Intake & Output: Intake & Output 07/14/20 07/14/20 07/14/20 05:59 13:59 21:59 Intake Total 967 1460 240 Output Total 2217 059 5547 Balance -143 760 -935 Weight 219 lb 4.8 oz Intake: IV 967 1100 Sodium Chloride 0.9% 1,000 ml @ 967 1000 125 mls/hr IV .Q8H [facility] Rx#: [id number] Oral 0 360 240 Tube Feeding 0 0 0 Output: Gastric Drainage 550 700 Left Nare NG/OG 550 700 Drainage 10 75 Abdomen AALIYAH Drain 10 75 Urine Catheter Amount 550 1100 Other: Meal Breakfast Percent of Meal Consumed 50% Urine Appearance Clear Uretheral (Delaney) Clear Urine Color Light Bernie Uretheral (Delaney) Light Bernie Head Head exam: Present atraumatic, normal inspection and normocephalic Eye Eye exam: Present EOMI and PERRL Pupils: Present normal accommodation and PERRL ENT ENT exam: Present mucous membranes moist, normal exam and normal oropharynx Neck Neck exam: Present full ROM and normal inspection; Absent lymphadenopathy, tenderness and thyromegaly Respiratory Respiratory exam: Present normal respiratory exam and CTAB; Absent rales, rhonchi and wheezes Cardiovascular Cardiovascular exam: Present normal rate and rhythm, RRR, +S1 and +S2; Absent JVD and rubs GI/Abdominal GI/Abdominal exam: Present distended, guarding, hypoactive bowel sounds and tenderness (moderate tenderness; incisions look good; AALIYAH drainage with bloody drainage) Extremities Exam Extremities exam: Present full ROM, normal inspection and neurovascular intact Back Exam Back exam: Present full ROM; Absent tenderness Neurological Exam Neurological exam: Present alert, CN II-XII intact, normal gait, oriented X3 and reflexes normal; Absent motor sensory deficit Psychiatric Psychiatric exam: Present normal affect and normal mood Skin Skin exam: Present intact and normal color A/P Assessment and plan (1) Status post colostomy: Status: Acute (2) Cholelithiasis and cholecystitis without obstruction: Status: Acute Qualifiers: Cholecystitis acuity: acute and chronic Narrative A/P Narrative: patient will continue on present therapy Labs were rechecked in the morning Time Spent With Patient Time: Total time spent is greater than 50% in coordination of care (as documented) at patient's floor/unit and/or counseling patient:
[2020-07-14] MEDS: SENNOSIDES 1 TABLET PO SCH (20:52)
[2020-07-15] MEDS: HYDROmorphone 1 MG/ML SYRINGE IV PRN ×4 (02:28→21:16)
[2020-07-15] MEDS: 0.9 % SODIUM CHLORIDE 1,000 ML IV SCH ×4 (04:36→20:49)
[2020-07-15] MEDS: 0.9 % SODIUM CHLORIDE 10 ML SYRINGE IV SCH ×3 (06:45→21:17)
[2020-07-15] MEDS: DOCUSATE SODIUM 100 MG CAPSULE PO SCH ×2 (09:25→21:17)
[2020-07-15] MEDS: LEVOFLOXACIN 500 MG/100 ML BAG IV SCH (09:25)
[2020-07-15 10:29] LABS: ALT/SGPT 22 U/L (<40); AST/SGOT 16 U/L (<40); Albumin 3.2 gm/dL (3.2-5.2); Albumin/Globulin Ratio 1.5 (1.0-2.3); Alkaline Phosphatase 46 U/L (39-117); Basophils # (Auto) 0.03 K/mcL (0.00-0.20); Basophils % (Auto) 0.3 % (0.0-2.0); Bilirubin,Direct 0.3 mg/dL (<0.3); Bilirubin,Total 0.8 mg/dL (0.1-1.0); Blood Urea Nitrogen 12 mg/dL (8-23); Calcium 8.7 mg/dL (8.6-10.4); Carbon Dioxide 25 mmol/L (22-30); Chloride 103 mmol/L (96-108); Eosinophils # (Auto) 0.01 K/mcL (0.00-0.70); Eosinophils % (Auto) 0.1 % (0.0-7.0); Globulin 2.2 gm/dL (2.2-3.7); Glomerular Filtration Rate 94; Glucose 100 mg/dL (70-105); Hematocrit 37.4 % (41.0-55.0); Hemoglobin 12.6 g/dL (13.5-16.5); Lactate Dehydrogenase 128 U/L (135-225); Lymphocytes # (Auto) 1.46 K/mcL (1.50-4.80); Lymphocytes % (Auto) 13.9 % (15.0-49.0); Mean Cell Volume 87.4 fL (80.0-100.0); Mean Corpuscular HGB Conc 33.7 g/dL (31.0-36.0); Mean Platelet Volume 8.8 fL (7.4-10.4); Monocytes # (Auto) 0.94 K/mcL (0.10-0.90); Monocytes % (Auto) 8.9 % (1.0-12.0); Neutrophils % (Auto) 76.8 % (38.0-78.0); Phosphorous 2.5 mg/dL (2.5-4.5); Platelet Count 205 K/mcL (140-440); RBC 4.28 M/mcL (4.50-5.90); Red Cell Distribution Width 12.6 % (11.5-14.5); Triglycerides 97 mg/dL (<150); Uric Acid 5.6 mg/dL (2.5-8.0); WBC 10.5 K/mcL (4.5-11.0)
--- NOTE | 2020-07-15 10:43 | General Surgery Progress Note ---
SUBJECTIVE Subjective Patient information: Note initiated : 07/15/20 at 10:38 am Service Date, if different from initiated Date: [] Patient: Derrick Summers 64 y/o M admitted on 07/13/20 for Laparoscopic Cholecystectomy, Possible Open and. Chief Complaint: [] Principal diagnosis: cholelithiasis with cholecystitis; colostomy status Interval history: patient states that he feels better. He does not have any nausea. He has not had any flatus. He has been out of bed and ambulated very short distance. He denies chest pain or shortness of breath. White blood count 10.5, hemoglobin 12.6, hematocrit 37.4, BUN 12, creatinine 0.8, potassium 3.7. Constitutional Vitals: Vital Signs Temp Pulse Resp BP Pulse Ox 98.8 F 95 H 18 147/81 93 07/15/20 08:00 07/15/20 08:00 07/15/20 08:00 07/15/20 08:00 07/15/20 08:00 Period Temp Pulse Resp BP Sys/Hua Pulse Ox Last 24 Hr 97.5 F-98.9 F 81-104 14-24 123-147/72-83 91-94 Intake and Output 07/14/20 07/15/20 07/15/20 21:59 05:59 13:59 Intake Total 1440 1250 0 Output Total 1175 1990 06 Balance 265 -740 -10 Weight 218 lb 12.8 oz Intake & Output: Intake & Output 07/14/20 07/15/20 07/15/20 21:59 05:59 13:59 Intake Total 1440 1250 0 Output Total 1175 1990 06 Balance 265 -740 -10 Weight 218 lb 12.8 oz Intake: IV 1000 1000 Sodium Chloride 0.9% 1,000 ml @ 1000 1000 125 mls/hr IV .Q8H [facility] Rx#: [id number] Oral 440 250 Tube Feeding 0 0 0 Output: Gastric Drainage 925 Left Nare NG/OG 925 Drainage 10 10 Abdomen AALIYAH Drain 10 10 Drainage 75 55 Abdomen AALIYAH Drain 75 55 Urine Catheter Amount 1100 1000 Other: Urine Appearance Clear Uretheral (Delaney) Clear Urine Color Bright Yellow Uretheral (Delaney) Dark Yellow Head Head exam: Present atraumatic, normal inspection and normocephalic Eye Eye exam: Present EOMI and PERRL Pupils: Present normal accommodation and PERRL ENT ENT exam: Present mucous membranes moist, normal exam and normal oropharynx Neck Neck exam: Present full ROM and normal inspection; Absent lymphadenopathy, tenderness and thyromegaly Respiratory Respiratory exam: Present normal respiratory exam and CTAB; Absent rales, rhonchi and wheezes Cardiovascular Cardiovascular exam: Present normal rate and rhythm, RRR, +S1 and +S2; Absent JVD and rubs GI/Abdominal GI/Abdominal exam: Present distended, guarding, hypoactive bowel sounds and tenderness (moderate tenderness; incisions look good; AALIYAH drainage with bloody drainage) Extremities Exam Extremities exam: Present full ROM, normal inspection and neurovascular intact Neurological Exam Neurological exam: Present alert, CN II-XII intact, normal gait, oriented X3 and reflexes normal; Absent motor sensory deficit Psychiatric Psychiatric exam: Present normal affect and normal mood Skin Skin exam: Present intact and normal color A/P Assessment and plan (1) Cholelithiasis and cholecystitis without obstruction: Status: Acute Qualifiers: Cholecystitis acuity: acute and chronic (2) Status post colostomy: Status: Acute Narrative A/P Narrative: continue to encourage out of bed Ambulate at least twice daily chest x-ray in a.m. and repeat labs Time Spent With Patient Time: Total time spent is greater than 50% in coordination of care (as documented) at patient's floor/unit and/or counseling patient:
--- NOTE | 2020-07-15 16:55 | Surgical Pathology Report ---
Histology Microscopic Diagnosis Specimen A- GALLBLADDER, CHOLECYSTECTOMY: -- CHRONIC CHOLECYSTITIS WITH CHOLESTEROLOSIS AND CHOLELITHIASIS. Procedural Impression Gallstones; colostomy. Gross Description Received in formalin labeled with the patient information, is a forbes barrett gallbladder that measures 8.4 x 2.9 x 2.2 cm. There is a metal clip on the duct. The specimen contains multiple stones from less than 0.1 to 0.6 cm. The mucosa is green-barrett with a few areas of raised lacy yellow pigmentation. The wall is up to 0.3 cm thick. Welt Rougher sections submitted in one cassette. Microscopic Diagnosis Specimen B- SKIN AND COLON, COLOSTOMY REVISION: -- PATCHY MILD FIBROSIS, CHRONIC INFLAMMATION AND FOREIGN BODY GIANT CELLS. -- VIABLE MARGINS OF RESECTION. -- NO MALIGNANCY IDENTIFIED. (RLF:sln) Gross Description Received in formalin labeled with the patient information, is an unoriented ellipse of barrett skin that measures 3.5 x 1.5 cm. Centrally there is a 3.3 cm open area containing sutures. There is attached barrett fatty tissue measuring 5.9 x 6 x 3.5 cm. Extending from beneath the sutured area is a 4.5 cm in length by up to 2.2 cm in diameter segment of colon. The bowel margin is stapled. The serosal surface is forbes-barrett and the wall is up to 0.3 cm in thickness. The mucosa is barrett and plicated. Grossly there are no lymph nodes or mass lesions identified. Welt Rougher sections submitted three cassettes: B1 - skin tips; B2 - colon margin; B3 - textile machinery sales representative section of transition from skin to mucosal surface. (SCB:sln) Electronically Signed Araceli Joshi MD, FCAP Electronically Signed 07/15/2020 11:12 AM
[2020-07-15] MEDS: SENNOSIDES 1 TABLET PO SCH (21:16)
[2020-07-16] MEDS: HYDROmorphone 1 MG/ML SYRINGE IV PRN ×3 (03:13→22:44)
[2020-07-16] MEDS: 0.9 % SODIUM CHLORIDE 1,000 ML IV SCH ×4 (04:33→16:33)
[2020-07-16] MEDS: 0.9 % SODIUM CHLORIDE 10 ML SYRINGE IV SCH ×3 (05:29→21:15)
[2020-07-16 07:08] LABS: Basophils # (Auto) 0.03 K/mcL (0.00-0.20); Basophils % (Auto) 0.3 % (0.0-2.0); Eosinophils % (Auto) 1.1 % (0.0-7.0); Hematocrit 35.1 % (41.0-55.0); Hemoglobin 12.1 g/dL (13.5-16.5); Lymphocytes # (Auto) 1.74 K/mcL (1.50-4.80); Lymphocytes % (Auto) 18.7 % (15.0-49.0); Mean Cell Volume 86.2 fL (80.0-100.0); Mean Corpuscular HGB Conc 34.5 g/dL (31.0-36.0); Mean Platelet Volume 8.7 fL (7.4-10.4); Monocytes # (Auto) 0.87 K/mcL (0.10-0.90); Monocytes % (Auto) 9.3 % (1.0-12.0); Neutrophils % (Auto) 70.6 % (38.0-78.0); Platelet Count 199 K/mcL (140-440); RBC 4.07 M/mcL (4.50-5.90); Red Cell Distribution Width 12.3 % (11.5-14.5); WBC 9.3 K/mcL (4.5-11.0)
[2020-07-16 07:46] LABS: ALT/SGPT 16 U/L (<40); AST/SGOT 12 U/L (<40); Albumin 3.1 gm/dL (3.2-5.2); Albumin/Globulin Ratio 1.2 (1.0-2.3); Alkaline Phosphatase 49 U/L (39-117); Bilirubin,Direct 0.3 mg/dL (<0.3); Blood Urea Nitrogen 12 mg/dL (8-23); Calcium 8.8 mg/dL (8.6-10.4); Carbon Dioxide 28 mmol/L (22-30); Chloride 101 mmol/L (96-108); Globulin 2.5 gm/dL (2.2-3.7); Glomerular Filtration Rate 94; Glucose 95 mg/dL (70-105); Lactate Dehydrogenase 127 U/L (135-225); Phosphorous 3.1 mg/dL (2.5-4.5); Triglycerides 97 mg/dL (<150); Uric Acid 6.5 mg/dL (2.5-8.0)
[2020-07-16] MEDS: LEVOFLOXACIN 500 MG/100 ML BAG IV SCH (07:52)
[2020-07-16] MEDS: DOCUSATE SODIUM 100 MG CAPSULE PO SCH ×2 (07:52→21:15)
--- NOTE | 2020-07-16 12:31 | General Surgery Progress Note ---
SUBJECTIVE Subjective Patient information: Note initiated : 07/16/20 at 12:27 pm Service Date, if different from initiated Date: [] Patient: Derrick Summers 64 y/o M admitted on 07/13/20 for Laparoscopic Cholecystectomy, Possible Open and. Chief Complaint: [] Principal diagnosis: cholelithiasis with cholecystitis; colostomy status Interval history: patient states that he feels better. He does have some mild shortness of breath when trying to ambulate. He is using his inspirometer well with good volumes. He denies chest pain. He's had very small amount of flatus. Potassium 3.7, BUN 12, creatinine 0.8, white blood count 9.3, hemoglobin 12.1, hematocrit 35.1. Constitutional Vitals: Vital Signs Temp Pulse Resp BP Pulse Ox 98.0 F 90 18 151/91 93 07/16/20 08:00 07/16/20 08:00 07/16/20 08:00 07/16/20 08:00 07/16/20 08:00 Period Temp Pulse Resp BP Sys/Hua Pulse Ox Last 24 Hr 97.9 F-100.2 F 89-98 18-22 143-165/80-91 93-95 Intake and Output 07/15/20 07/16/20 07/16/20 21:59 05:59 13:59 Intake Total 1000 1600 100 Output Total 2140 1075 720 Balance -1140 525 -620 Weight 217 lb 6.4 oz Intake & Output: Intake & Output 07/15/20 07/16/20 07/16/20 21:59 05:59 13:59 Intake Total 1000 1600 100 Output Total 2140 1075 720 Balance -1140 525 -620 Weight 217 lb 6.4 oz Intake: IV 1000 1000 Sodium Chloride 0.9% 1,000 ml @ 1000 1000 125 mls/hr IV .Q8H [facility] Rx#: [id number] Oral 600 100 Tube Feeding 0 0 0 Output: Gastric Drainage 950 750 400 Left Nare NG/OG 950 750 400 Drainage 40 25 20 Abdomen AALIYAH Drain 40 25 20 Urine Catheter Amount 1150 300 300 Other: Urine Appearance Clear Clear Clear Uretheral (Delaney) Clear Urine Color Dark Yellow Dark Yellow Bright Yellow Uretheral (Delaney) Dark Yellow Urine Odor Normal Normal Head Head exam: Present atraumatic, normal inspection and normocephalic Eye Eye exam: Present EOMI and PERRL Pupils: Present normal accommodation and PERRL ENT ENT exam: Present mucous membranes moist, normal exam and normal oropharynx Additional comments: altered hearing bilaterally Neck Neck exam: Present full ROM and normal inspection; Absent lymphadenopathy, tenderness and thyromegaly Respiratory Respiratory exam: Present normal respiratory exam and CTAB; Absent rales, rhonchi and wheezes Cardiovascular Cardiovascular exam: Present normal rate and rhythm, RRR, +S1 and +S2; Absent JVD and rubs GI/Abdominal GI/Abdominal exam: Present distended, guarding, hypoactive bowel sounds and tenderness (moderate tenderness; incisions look good; AALIYAH drainage with bloody drainage) Extremities Exam Extremities exam: Present full ROM, normal inspection and neurovascular intact Back Exam Back exam: Present full ROM; Absent tenderness Neurological Exam Neurological exam: Present alert, CN II-XII intact, normal gait, oriented X3 and reflexes normal; Absent motor sensory deficit Psychiatric Psychiatric exam: Present normal affect and normal mood A/P Assessment and plan (1) Cholelithiasis and cholecystitis without obstruction: Status: Acute Qualifiers: Cholecystitis acuity: acute and chronic (2) Status post colostomy: Status: Acute (3) Hypertension, essential: Status: Chronic Narrative A/P Narrative: clamp nasogastric tube Discontinue Delaney catheter Abdominal x-rays in the morning Time Spent With Patient Time: Total time spent is greater than 50% in coordination of care (as documented) at patient's floor/unit and/or counseling patient:
[2020-07-16] MEDS: SENNOSIDES 1 TABLET PO SCH (21:15)
[2020-07-17] MEDS: 0.9 % SODIUM CHLORIDE 1,000 ML IV SCH ×4 (01:01→18:13)
[2020-07-17] MEDS: HYDROmorphone 1 MG/ML SYRINGE IV PRN ×5 (03:08→20:59)
[2020-07-17] MEDS: 0.9 % SODIUM CHLORIDE 10 ML SYRINGE IV SCH ×3 (05:12→21:02)
[2020-07-17 06:36] LABS: Basophils # (Auto) 0.04 K/mcL (0.00-0.20); Basophils % (Auto) 0.4 % (0.0-2.0); Eosinophils # (Auto) 0.16 K/mcL (0.00-0.70); Eosinophils % (Auto) 1.5 % (0.0-7.0); Hemoglobin 13.1 g/dL (13.5-16.5); Lymphocytes # (Auto) 1.41 K/mcL (1.50-4.80); Lymphocytes % (Auto) 12.8 % (15.0-49.0); Mean Cell Volume 86.9 fL (80.0-100.0); Mean Corpuscular HGB Conc 33.6 g/dL (31.0-36.0); Mean Platelet Volume 8.9 fL (7.4-10.4); Monocytes # (Auto) 0.81 K/mcL (0.10-0.90); Monocytes % (Auto) 7.4 % (1.0-12.0); Neutrophils % (Auto) 77.9 % (38.0-78.0); Platelet Count 241 K/mcL (140-440); RBC 4.49 M/mcL (4.50-5.90); Red Cell Distribution Width 12.4 % (11.5-14.5)
[2020-07-17 07:16] LABS: ALT/SGPT 19 U/L (<40); AST/SGOT 14 U/L (<40); Albumin/Globulin Ratio 1.2 (1.0-2.3); Alkaline Phosphatase 55 U/L (39-117); Bilirubin,Direct 0.4 mg/dL (<0.3); Bilirubin,Total 1.1 mg/dL (0.1-1.0); Blood Urea Nitrogen 11 mg/dL (8-23); Calcium 8.8 mg/dL (8.6-10.4); Carbon Dioxide 24 mmol/L (22-30); Chloride 97 mmol/L (96-108); Globulin 2.5 gm/dL (2.2-3.7); Glomerular Filtration Rate 99; Glucose 105 mg/dL (70-105); Lactate Dehydrogenase 160 U/L (135-225); Phosphorous 3.5 mg/dL (2.5-4.5); Triglycerides 108 mg/dL (<150); Uric Acid 7.2 mg/dL (2.5-8.0)
[2020-07-17] MEDS: LEVOFLOXACIN 500 MG/100 ML BAG IV SCH (08:40)
[2020-07-17] MEDS: DOCUSATE SODIUM 100 MG CAPSULE PO SCH ×2 (08:44→21:01)
--- NOTE | 2020-07-17 15:01 | General Surgery Progress Note ---
SUBJECTIVE Subjective Patient information: Note initiated : 07/17/20 at 2:58 pm Service Date, if different from initiated Date: [] Patient: Derrick Summers 64 y/o M admitted on 07/13/20 for Laparoscopic Cholecystectomy, Possible Open and. Chief Complaint: [] Principal diagnosis: cholelithiasis with cholecystitis; colostomy status Interval history: patient is stable. He had intermittent nausea last evening with his nasogastric tube clamped but it has resolved for the time being. He has not had flatus so far. He denies any significant abdominal pain. White blood count 11, hemoglobin 13.1, hematocrit 39.0. Constitutional Vitals: Vital Signs Temp Pulse Resp BP Pulse Ox 99.0 F 104 H 18 162/97 95 07/17/20 12:31 07/17/20 12:31 07/17/20 12:31 07/17/20 12:31 07/17/20 12:31 Period Temp Pulse Resp BP Sys/Hua Pulse Ox Last 24 Hr 97.4 F-99.0 F 91-106 16-20 145-168/86-97 93-96 Intake and Output 07/17/20 07/17/20 07/17/20 05:59 13:59 21:59 Intake Total 1850 1067 Output Total 465 Balance 1385 1067 Intake & Output: Intake & Output 07/17/20 07/17/20 07/17/20 05:59 13:59 21:59 Intake Total 1850 1067 Output Total 465 Balance 1385 1067 Intake: IV 1000 1067 Sodium Chloride 0.9% 1,000 ml @ 1000 967 125 mls/hr IV .Q8H [facility] Rx#: [id number] Oral 850 Tube Feeding 0 0 Output: Gastric Drainage 350 Left Nare NG/OG 350 Drainage 115 Abdomen AALIYAH Drain 115 Other: Urine Appearance Clear Urine Color Bright Yellow Urine Odor Normal # Voids 1 ENT ENT exam: Present mucous membranes moist and normal exam Neck Neck exam: Present full ROM and normal inspection; Absent lymphadenopathy, tenderness and thyromegaly Respiratory Respiratory exam: Present normal respiratory exam and CTAB; Absent rales, rhonchi and wheezes Cardiovascular Cardiovascular exam: Present normal rate and rhythm, RRR, +S1 and +S2; Absent JVD and rubs GI/Abdominal GI/Abdominal exam: Present distended, guarding, hypoactive bowel sounds and tenderness (moderate tenderness; incisions look good; AALIYAH drainage with bloody drainage) Extremities Exam Extremities exam: Present full ROM, normal inspection and neurovascular intact Neurological Exam Neurological exam: Present alert, CN II-XII intact, normal gait, oriented X3 and reflexes normal; Absent motor sensory deficit Psychiatric Psychiatric exam: Present normal affect and normal mood A/P Assessment and plan (1) Status post colostomy: Status: Acute (2) Cholelithiasis and cholecystitis without obstruction: Status: Acute Qualifiers: Cholecystitis acuity: acute and chronic Narrative A/P Narrative: metoclopramide 10 mg IV every 6 Continue with nasogastric tube clamped Probable discontinue nasogastric tube in the morning Time Spent With Patient Time: Total time spent is greater than 50% in coordination of care (as documented) at patient's floor/unit and/or counseling patient:
[2020-07-17] MEDS: METOCLOPRAMIDE 10 MG/2 ML VIAL IV SCH ×2 (17:53→23:50)
[2020-07-17] MEDS ORDERED: METOCLOPRAMIDE 10 MG/2 ML VIAL IV SCH (18:00)
[2020-07-17] MEDS: SENNOSIDES 1 TABLET PO SCH (21:01)
[2020-07-18] MEDS: HYDROmorphone 1 MG/ML SYRINGE IV PRN ×3 (00:02→07:40)
[2020-07-18] MEDS: 0.9 % SODIUM CHLORIDE 1,000 ML IV SCH ×3 (02:34→20:26)
[2020-07-18] MEDS: METOCLOPRAMIDE 10 MG/2 ML VIAL IV SCH ×3 (05:48→17:54)
[2020-07-18] MEDS: 0.9 % SODIUM CHLORIDE 10 ML SYRINGE IV SCH ×3 (05:50→20:27)
--- NOTE | 2020-07-18 07:51 | XRay Report ---
INDICATION: FOLLOW -UP OF SMALL BOWEL OBSTRUCTION TECHNIQUE: Supine and upright abdomen. COMPARISON: Previous abdomen dated 05/06/2020 FINDINGS:Esophagogastric tube in the stomach. There are surgical clips in the right upper quadrant consistent with cholecystectomy. There are multiple skin claudia in the right side of the abdomen. There are skin claudia in a vertical midline incision and some skin claudia in the left lower quadrant. There is a surgical drain in the pelvis. There is free intraperitoneal air which is presumably post operative. There is gas within the colon. There is small bowel gas with mild prominence. This may indicate mild postoperative ileus. Appearance is not consistent with mechanical small bowel obstruction. No biliary or portal venous gas. There is no pneumatosis. IMPRESSION: 1. Previous cholecystectomy 2. Surgical drain in the pelvis 3. Pneumoperitoneum considered postoperative 4. Mildly prominent gas filled small bowel may indicate postoperative ileus. No mechanical small bowel obstruction Interpreted and Authenticated by: Ronald Shah 07/18/20
[2020-07-18] MEDS: LEVOFLOXACIN 500 MG/100 ML BAG IV SCH (08:08)
[2020-07-18] MEDS: DOCUSATE SODIUM 100 MG CAPSULE PO SCH ×2 (08:08→20:25)
[2020-07-18 11:07] LABS: ALT/SGPT 24 U/L (<40); AST/SGOT 28 U/L (<40); Albumin/Globulin Ratio 1.1 (1.0-2.3); Alkaline Phosphatase 76 U/L (39-117); Bilirubin,Direct 0.3 mg/dL (<0.3); Bilirubin,Total 1.2 mg/dL (0.1-1.0); Blood Urea Nitrogen 16 mg/dL (8-23); Calcium 8.7 mg/dL (8.6-10.4); Carbon Dioxide 21 mmol/L (22-30); Chloride 99 mmol/L (96-108); Globulin 2.7 gm/dL (2.2-3.7); Glomerular Filtration Rate 106; Glucose 118 mg/dL (70-105); Lactate Dehydrogenase 258 U/L (135-225); Triglycerides 146 mg/dL (<150); Uric Acid 6.6 mg/dL (2.5-8.0)
[2020-07-18 11:19] LABS: Basophils # (Auto) 0.04 K/mcL (0.00-0.20); Basophils % (Auto) 0.4 % (0.0-2.0); Eosinophils # (Auto) 0.19 K/mcL (0.00-0.70); Eosinophils % (Auto) 1.7 % (0.0-7.0); Hemoglobin 14.5 g/dL (13.5-16.5); Lymphocytes # (Auto) 2.02 K/mcL (1.50-4.80); Lymphocytes % (Auto) 17.7 % (15.0-49.0); Mean Cell Volume 87.2 fL (80.0-100.0); Mean Corpuscular HGB Conc 33.7 g/dL (31.0-36.0); Mean Platelet Volume 9.8 fL (7.4-10.4); Monocytes # (Auto) 0.92 K/mcL (0.10-0.90); Monocytes % (Auto) 8.1 % (1.0-12.0); Neutrophils % (Auto) 72.1 % (38.0-78.0); Platelet Count 259 K/mcL (140-440); RBC 4.93 M/mcL (4.50-5.90); Red Cell Distribution Width 12.6 % (11.5-14.5); WBC 11.4 K/mcL (4.5-11.0)
--- NOTE | 2020-07-18 13:16 | General Surgery Progress Note ---
SUBJECTIVE Subjective Patient information: Note initiated : 07/18/20 at 1:13 pm Service Date, if different from initiated Date: [] Patient: Derrick Summers 64 y/o M admitted on 07/13/20 for Laparoscopic Cholecystectomy, Possible Open and. Chief Complaint: [] Principal diagnosis: cholelithiasis with cholecystitis; colostomy status Interval history: patient has had multiple episodes of flatus. His pain is controlled. He had nausea 1 but that resolved spontaneously. He does not have abdominal distention. Abdominal x-rays shows dilated loops of small bowel with gas extending down to the rectum with gas in the rectum below the anastomosis. There is no increase in drainage. White blood count 11 Constitutional Vitals: Vital Signs Temp Pulse Resp BP Pulse Ox 98.5 F 89 18 160/88 94 07/18/20 12:00 07/18/20 12:00 07/18/20 12:00 07/18/20 12:00 07/18/20 12:00 Period Temp Pulse Resp BP Sys/Hua Pulse Ox Last 24 Hr 98.4 F-100.1 F 89-108 16-18 145-164/83-93 93-97 Intake and Output 07/17/20 07/18/20 07/18/20 21:59 05:59 13:59 Intake Total 0 1360 1240 Output Total 760 1240 520 Balance -760 120 720 Weight 220 lb 9.6 oz Intake & Output: Intake & Output 07/17/20 07/18/20 07/18/20 21:59 05:59 13:59 Intake Total 0 1360 1240 Output Total 760 1240 520 Balance -760 120 720 Weight 220 lb 9.6 oz Intake: IV 1000 1000 Sodium Chloride 0.9% 1,000 ml @ 1000 1000 125 mls/hr IV .Q8H [facility] Rx#: [id number] Oral 360 240 Tube Feeding 0 0 0 Output: Drainage 185 765 Abdomen AALIYAH Drain 185 765 Drainage 120 Abdomen AALIYAH Drain 120 Void Amount 575 475 400 Other: Urine Appearance Clear Clear Urine Color Dark Yellow Dark Bernie Urine Odor Normal Head Head exam: Present atraumatic, normal inspection and normocephalic Eye Eye exam: Present EOMI and PERRL Pupils: Present normal accommodation and PERRL ENT ENT exam: Present mucous membranes moist and normal exam Neck Neck exam: Present full ROM and normal inspection; Absent lymphadenopathy, tenderness and thyromegaly Respiratory Respiratory exam: Present normal respiratory exam and CTAB; Absent rales, rhonchi and wheezes Cardiovascular Cardiovascular exam: Present normal rate and rhythm, RRR, +S1 and +S2; Absent JVD and rubs GI/Abdominal GI/Abdominal exam: Present distended, guarding, hypoactive bowel sounds and tenderness (moderate tenderness; incisions look good; AALIYAH drainage with bloody drainage) Extremities Exam Extremities exam: Present full ROM, normal inspection and neurovascular intact Neurological Exam Neurological exam: Present alert, CN II-XII intact, normal gait, oriented X3 and reflexes normal; Absent motor sensory deficit Psychiatric Psychiatric exam: Present normal affect and normal mood Skin Skin exam: Present intact and normal color A/P Assessment and plan (1) Cholelithiasis and cholecystitis without obstruction: Status: Acute Qualifiers: Cholecystitis acuity: acute and chronic (2) Status post colostomy: Status: Acute (3) Hypertension, essential: Status: Chronic Narrative A/P Narrative: discontinue nasogastric tube Clinical liquids Time Spent With Patient Time: Total time spent is greater than 50% in coordination of care (as documented) at patient's floor/unit and/or counseling patient:
[2020-07-18] MEDS: SENNOSIDES 1 TABLET PO SCH (20:25)
[2020-07-19] MEDS: METOCLOPRAMIDE 10 MG/2 ML VIAL IV SCH ×2 (00:14→06:55)
[2020-07-19] MEDS: 0.9 % SODIUM CHLORIDE 1,000 ML IV SCH ×2 (03:54→15:46)
[2020-07-19 08:00] LABS: Basophils # (Auto) 0.03 K/mcL (0.00-0.20); Basophils % (Auto) 0.3 % (0.0-2.0); Eosinophils # (Auto) 0.32 K/mcL (0.00-0.70); Eosinophils % (Auto) 3.4 % (0.0-7.0); Lymphocytes # (Auto) 1.32 K/mcL (1.50-4.80); Lymphocytes % (Auto) 14.1 % (15.0-49.0); Mean Cell Volume 88.2 fL (80.0-100.0); Mean Corpuscular HGB Conc 33.3 g/dL (31.0-36.0); Mean Platelet Volume 8.8 fL (7.4-10.4); Monocytes # (Auto) 0.83 K/mcL (0.10-0.90); Monocytes % (Auto) 8.9 % (1.0-12.0); Neutrophils % (Auto) 73.3 % (38.0-78.0); Platelet Count 238 K/mcL (140-440); RBC 3.74 M/mcL (4.50-5.90); Red Cell Distribution Width 12.5 % (11.5-14.5); WBC 9.4 K/mcL (4.5-11.0)
[2020-07-19 08:49] LABS: ALT/SGPT 28 U/L (<40); AST/SGOT 22 U/L (<40); Albumin 2.8 gm/dL (3.2-5.2); Albumin/Globulin Ratio 1.1 (1.0-2.3); Alkaline Phosphatase 76 U/L (39-117); Bilirubin,Direct 0.3 mg/dL (<0.3); Bilirubin,Total 1.2 mg/dL (0.1-1.0); Blood Urea Nitrogen 10 mg/dL (8-23); Calcium 8.2 mg/dL (8.6-10.4); Carbon Dioxide 22 mmol/L (22-30); Chloride 102 mmol/L (96-108); Globulin 2.5 gm/dL (2.2-3.7); Glomerular Filtration Rate 106; Glucose 104 mg/dL (70-105); Lactate Dehydrogenase 154 U/L (135-225); Triglycerides 102 mg/dL (<150); Uric Acid 5.8 mg/dL (2.5-8.0)
[2020-07-19] MEDS: LEVOFLOXACIN 500 MG/100 ML BAG IV SCH (09:59)
[2020-07-19] MEDS: 0.9 % SODIUM CHLORIDE 10 ML SYRINGE IV SCH ×3 (11:30→21:48)
[2020-07-19] MEDS: DOCUSATE SODIUM 100 MG CAPSULE PO SCH (11:31)
[2020-07-19] MEDS: POTASSIUM CHLORIDE 20 MEQ TABLET PO SCH ×2 (12:50→17:24)
[2020-07-19] MEDS: DICYCLOMINE 20 MG TABLET PO SCH ×3 (12:52→21:48)
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
--- NOTE | 2020-07-19 13:20 | General Surgery Progress Note ---
SUBJECTIVE Subjective Patient information: Note initiated : 07/19/20 at 1:16 pm Service Date, if different from initiated Date: [] Patient: Derrick Summers 64 y/o M admitted on 07/13/20 for Laparoscopic Cholecystectomy, Possible Open and. Chief Complaint: [] Principal diagnosis: cholelithiasis with cholecystitis; colostomy status Interval history: patient has continued to do well. He has had multiple bowel movements and is tolerating liquid diet without difficulty. He is pain is controlled. Potassium 3, BUN 10, creatinine 0.6, phosphorus 2, white blood count 9.4, hemoglobin 11, hematocrit 33. Constitutional Vitals: Vital Signs Temp Pulse Resp BP Pulse Ox 98 F 88 18 171/88 97 07/19/20 12:00 07/19/20 12:00 07/19/20 12:00 07/19/20 12:00 07/19/20 12:00 Period Temp Pulse Resp BP Sys/Hua Pulse Ox Last 24 Hr 97.8 F-98.6 F 88-99 14-20 158-175/80-99 93-97 Intake and Output 07/18/20 07/19/20 07/19/20 21:59 05:59 13:59 Intake Total 1120 1621 683 Output Total 190 1885 650 Balance 930 -264 33 Weight 216 lb 8 oz Intake & Output: Intake & Output 07/18/20 07/19/20 07/19/20 21:59 05:59 13:59 Intake Total 1120 1621 683 Output Total 190 1885 650 Balance 930 -264 33 Weight 216 lb 8 oz Intake: Nourishment/Supplement quantity 363 (ml) IV 1000 931 Sodium Chloride 0.9% 1,000 ml @ 1000 931 125 mls/hr IV .Q8H [facility] Rx#: [id number] Oral 120 690 320 Output: Drainage 70 85 Abdomen AALIYAH Drain 70 85 Drainage 20 Abdomen AALIYAH Drain 20 Stool 100 1800 650 Other: Meal Lunch Percent of Meal Consumed 100% Feeding Ability Assist with Tray Set Up Stool Size Small Small Stool Color Green Brown Brown Stool Consistency Liquid Liquid Liquid # Voids 1 1 1 # Bowel Movements 1 1 1 Head Head exam: Present atraumatic, normal inspection and normocephalic Eye Eye exam: Present EOMI and PERRL Pupils: Present normal accommodation and PERRL ENT ENT exam: Present mucous membranes moist and normal exam Neck Neck exam: Present full ROM and normal inspection; Absent lymphadenopathy, tenderness and thyromegaly Respiratory Respiratory exam: Present normal respiratory exam and CTAB; Absent rales, rhonchi and wheezes Cardiovascular Cardiovascular exam: Present normal rate and rhythm, RRR, +S1 and +S2; Absent JVD and rubs GI/Abdominal GI/Abdominal exam: Present distended, guarding, hypoactive bowel sounds and tenderness (moderate tenderness; incisions look good; AALIYAH drainage with bloody drainage) Extremities Exam Extremities exam: Present full ROM, normal inspection and neurovascular intact Back Exam Back exam: Present full ROM; Absent tenderness Neurological Exam Neurological exam: Present alert, CN II-XII intact, normal gait, oriented X3 and reflexes normal; Absent motor sensory deficit Psychiatric Psychiatric exam: Present normal affect and normal mood A/P Assessment and plan (1) Cholelithiasis and cholecystitis without obstruction: Status: Acute Qualifiers: Cholecystitis acuity: acute and chronic (2) Status post colostomy: Status: Acute Narrative A/P Narrative: saline lock IV Regular diet Probable discharge tomorrow Time Spent With Patient Time: Total time spent is greater than 50% in coordination of care (as documented) at patient's floor/unit and/or counseling patient:
[2020-07-20] MEDS: 0.9 % SODIUM CHLORIDE 10 ML SYRINGE IV SCH (06:13)
[2020-07-20 07:47] LABS: ALT/SGPT 26 U/L (<40); AST/SGOT 16 U/L (<40); Albumin 2.9 gm/dL (3.2-5.2); Albumin/Globulin Ratio 1.3 (1.0-2.3); Alkaline Phosphatase 63 U/L (39-117); Bilirubin,Direct < 0.2 mg/dL (<0.3); Bilirubin,Total 0.6 mg/dL (0.1-1.0); Blood Urea Nitrogen 7 mg/dL (8-23); Calcium 8.7 mg/dL (8.6-10.4); Carbon Dioxide 24 mmol/L (22-30); Chloride 107 mmol/L (96-108); Globulin 2.2 gm/dL (2.2-3.7); Glomerular Filtration Rate 106; Glucose 104 mg/dL (70-105); Lactate Dehydrogenase 130 U/L (135-225); Phosphorous 2.9 mg/dL (2.5-4.5); Triglycerides 107 mg/dL (<150)
[2020-07-20] MEDS: POTASSIUM CHLORIDE 20 MEQ TABLET PO SCH (08:08)
[2020-07-20] MEDS: DICYCLOMINE 20 MG TABLET PO SCH (08:08)
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
[2020-07-20] MEDS ORDERED: FLU VACC QS2020-21(6MOS UP)/PF 60 MCG/0.5 ML SYRINGE IM ONE (13:47)
--- NOTE | 2020-08-03 14:24 | Operative Note ---
DATE OF OPERATION: 07/13/2020 PREOPERATIVE DIAGNOSES: Colostomy status and cholelithiasis with cholecystitis. POSTOPERATIVE DIAGNOSES: Colostomy status and cholelithiasis with cholecystitis. PROCEDURE: Laparoscopic cholecystectomy and colostomy takedown. SURGEON: Lashae Foster M.D. FINDINGS: Dilated gallbladder with stones and extensive adhesions. DESCRIPTION OF PROCEDURE: Under general anesthesia, the patient's abdomen was prepped from xiphoid to pubis. A supraumbilical midline was made above the previous lower midline incision. Veress needle was inserted and the abdomen was insufflated with 3 liters of CO2. Laparoscope was placed. There were extensive adhesions extending from the omentum. These were partially taken down. However, it was felt that we needed to have better access, so a 12 mm port and two 5 mm ports were placed in the right subcostal region under direct vision. Using the 5 mm ports and the electrocautery, the adhesions were from the peritoneum to give free access to the gallbladder. Gallbladder was grasped and positioned. Infundibulum was dissected and the cystic duct and cystic artery branch were identified. Cystic duct was transected using Endo BEST stapler. The cystic artery was clipped with four clips and divided. Gallbladder was from the infrahepatic bed using electrocautery. It was placed in an Endopouch and retrieved. Hemostasis in the bed was achieved. Air was allowed to escape from the abdomen and the ports were removed. Next, the lower midline incision was opened. There were extensive adhesions which were taken down using electrocautery and blunt dissection. Once these adhesions were taken down, the pelvis was evaluated, and it was apparent that the rectal stump was adequate for reanastomosis. The descending colon was then dissected up to the stoma. The stoma was circumferentially incised and from the wall until it could be a fully extended. There was enough length that it did not need to have further dissection. The end of the stoma was doubly stapled with a TA 60 stapler and excised. End-to-side anastomosis was performed between the rectal stump and the descending colon. Outer layer was completed with running 2-0 Prolene. Inner layer was completed with running locking inverting 2-0 Monocryl. Anterior layer was completed using 2-0 Prolene. The mesenteric defect was closed with interrupted silk. Irrigation was carried out. A #7 Blair drain was placed in the pelvis below the incision. It was brought out through a separate incision in the right lower quadrant. Further irrigation was carried out. The opening for the stoma was closed in two layers using running locking #1 Prolene and running locking 2-0 Prolene. Subcutaneous tissue was closed with 2-0 Monocryl. Midline incision was closed with running locking #1 Prolene. Subcutaneous tissue was closed with 2-0 Monocryl. Skin incisions were closed with claudia. Tegaderm dressing was placed. Drains were secured with 2-0 nylon. The patient tolerated the procedure well. He was awakened, transferred to a bed, and taken to the postanesthetic care unit in stable, satisfactory condition. LCS:marlon Job ID: [id number] Doc ID: [id number] Lashae Foster M.D.
== END 2020-07-20 14:30 | disposition home or self-care (01) | DRG 418 ==
LOC: MEDSUR 04:58
PROVIDERS: ADMIT Family Medicine Adult Medicine; ATTEND Family Medicine Adult Medicine